=== PATIENT | male | born 1970 | race Caucasian/White ===

== ENCOUNTER → 2017-08-10 09:32 | Emergency (ER) | payer BC ==
[~2017-08-10 09:32] MED LIST: Morphine INJ* 4 MG/ML 1 ML CARPUJECT IV ONE; NS 0.9% 1000 ML* 1,000 ML IV ONE; Ondansetron INJ* 2 MG/ML VIAL IV ONE; Piperacillin/Tazobac ADVAN(*) 3.375 GM in NS 0.9% 100 ML* 100 ML IVPB ONE
[2017-08-10 11:09] LABS: Hematocrit 43 % (42-52); Hemoglobin 14.6 g/dl (14.0-18.0); Mean Corpuscular HGB Conc 34 g/dl (31-36); Mean Corpuscular Hemoglobin 33 pg (27-31); Mean Corpuscular Volume 96 fL (80-94); Mean Platelet Volume 7 um3 (7.4-10.4); Red Blood Count 4.49 10^6/ul (4.0-5.4); Red Cell Distribution Width 13 % (10.5-15); White Blood Count 9.3 10^3/ul (3.5-10.8)
[2017-08-10 11:15] LABS: Urine Bacteria Absent (Absent); Urine Bilirubin Negative (Negative); Urine Glucose Negative (Negative); Urine Nitrite Negative (Negative)
[2017-08-10 11:25] LABS: Albumin 4.3 g/dL (3.2-5.2); BUN/Creatinine Ratio 16.7 (8-20); C Reactive Protein 95.67 mg/L (< 5.00); Calcium 9.2 mg/dL (8.6-10.3); EGFR African American 125.4 (>60); EGFR Non-African American 97.5 (>60); Globulin 2.9 g/dL (2-4); Total Bilirubin 0.8 mg/dL (0.2-1.0); Total Protein 7.2 g/dL (6.4-8.9)
--- NOTE | 2017-08-10 12:38 | RAD ---
INDICATION: Lower abdominal pain since Tuesday. Denies nausea, vomiting, diarrhea. Denies constipation. Post appendectomy and hernia repairs. COMPARISON: June 23, 2015 CT. TECHNIQUE: Multidetector CT images were obtained from the lung bases to the ischial tuberosities. Oral contrast administered. Assessment of the visceral limited without IV contrast. REPORT: Mild linear basilar subsegmental atelectasis. Unremarkable unenhanced liver, gallbladder, pancreas, spleen. Severe colonic diverticulosis most marked at the sigmoid colon. Mild perienteric inflammatory change at the medial margin of the proximal sigmoid colon without visualized perienteric abscess collection. Small volume of free fluid along the RIGHT pelvic sidewall and at the dependent pelvis. Negative for free air. Post appendectomy. Unremarkable small bowel loops. Normal adrenal glands. Unremarkable kidneys. Negative for urolithiasis or hydronephrosis. Unremarkable nondilated ureters and urinary bladder. Symmetric seminal vesicles. Multiple pelvic phleboliths. Negative for lymphadenopathy. Normal diameter abdominal aorta and iliac arteries. Physiologic distention of the IVC. Negative for suspicious focal osseous lesions. IMPRESSION: The constellation of findings is most consistent with acute diverticulitis of the proximal sigmoid colon without perienteric abscess, free intraperitoneal air, or resulting bowel obstruction. The region of diverticulitis is further distal than on the June 23, 2015 exam. Follow-up after therapy suggested to assess for resolution and exclude an underlying noninflammatory lesion of the bowel.
--- NOTE | 2017-08-10 13:17 | ED ---
Rebeka Bauman Nilda, scribed for Juliana Downey MD on 08/10/17 at 1017 . Abdominal Pain/Male - HPI Summary HPI Summary: This patient is a 47 year old M presenting to [facility] accompanied by with a chief complaint of constant, progressively worsening LLQ pain for the past four days ago. The patient rates the pain 8/10 in severity. Initially pain began as 2 /10. Symptoms aggravated and alleviated by nothing including Motrin [employer]. Patient reports headache, constipation (yesterday), and intermittent shooting pain in testicle (not currently present). Patient denies fever, chills, N/V/D, pencil thin stools, urinary retention, and dysuria. Two weeks ago, pt was heavy lifting and injured his back. Pt also states he has Hx of bilat hernia and is concerned pain may be due to hernia. Per , pt has adverse reaction to IV contrast and Vicodin. PMHx Diverticulitis (2014) and Prostatitis. - History of Current Complaint Chief Complaint: EDAbdPain Stated Complaint: ABD PAIN Hx Obtained From: Patient, Family/Stereotyper Apprentice - Onset/Duration: Sudden Onset, Lasting Days, Still Present Timing: Constant Severity Initially: Mild Severity Currently: Severe Pain Intensity: 8 Pain Scale Used: 0-10 Numeric Location: Discrete At: LLQ Radiates: No Aggravating Factor(s): Nothing Alleviating Factor(s): Nothing Associated Signs And Symptoms: Positive: Other - headache, constipation ( yesterday), back pain and intermittent shooting pain in testicle (not currently present). Patient denies fever, chills, n/v/d, pencil thin stools, urinary retention, and dysuria - Allergies/Home Medications Allergies/Adverse Reactions: Allergies Allergy/AdvReac Type Severity Reaction Status Date / Time No Known Allergies Allergy Verified 06/23/15 16:11 PMH/Surg Hx/FS Hx/Imm Hx Endocrine/Hematology History: Denies: Hx Diabetes Cardiovascular History: Denies: Hx Congestive Heart Failure, Hx Hypercholesterolemia, Hx Hypertension GI History: Reports: Hx Diverticulosis, Other GI Disorders - bilat hernia History: Reports: Other Problems/Disorders - prostatitis - Surgical History Surgery Procedure, Year, and Place: APPENDECTOMY, HERNIA REPAIR X 2 - Immunization History Date of Tetanus Vaccine: Unk Date of Influenza Vaccine: None Infectious Disease History: No Infectious Disease History: Denies: Traveled Outside the [place] in Last 30 Days - Family History Known Family History: Negative: Hypertension - Social History Lives: With Family Alcohol Use: Rare Hx Substance Use: No Substance Use Type: Reports: None Smoking Status (MU): Never Smoked Tobacco Review of Systems Negative: Fever, Chills Positive: Abdominal Pain - LLQ, Other - constipation; negative pencil thin stools. Negative: Vomiting, Diarrhea, Nausea Positive: other - pain in testicle (not currently present); negative urinary retention . Negative: dysuria Positive: Headache All Other Systems Reviewed And Are Negative: Yes Physical Exam - Summary Physical Exam Summary: General: Well appearing, no pain distress Skin: Warm, Skin Color Reflects Adequate Perfusion, Dry Eyes: EOMI, TYRONE ENT: Pharynx normal, TMs normal Neck: Supple, nontender Respiratory: CTA, breath sounds present, no rhonchi, no wheezes, no rales Cardiovascular: RRR, no murmur, no rub, no gallop Abdomen: Soft, left suprapubic pain, Non-distended, no guarding, no rebound Bowel: Present Musculoskeletal: VERONICA, No edema Neuro: Sensory/motor intact, A&Ox3, CN intact 2-12 Psych: Affect/mood appropriate Triage Information Reviewed: Yes Vital Signs On Initial Exam: Initial Vitals Temp Pulse Resp BP Pulse Ox 97.6 F 73 18 135/67 98 08/10/17 09:38 08/10/17 09:38 08/10/17 09:38 08/10/17 09:38 08/10/17 09:38 Vital Signs Reviewed: Yes - Calvin Coma Scale Coma Scale Total: 15 Diagnostics - Vital Signs Vital Signs Temp Pulse Resp BP Pulse Ox 08/10/17 09:38 97.6 F 73 18 135/67 98 - Laboratory Lab Results: Lab Results 08/10/17 08/10/17 08/10/17 Range/Units 10:43 10:43 10:43 WBC 9.3 (3.5-10.8) 10^3/ul RBC 4.49 (4.0-5.4) 10^6/ul Hgb 14.6 (14.0-18.0) g/dl Hct 43 (42-52) % MCV 96 H (80-94) fL MCH 33 H (27-31) pg MCHC 34 (31-36) g/dl RDW 13 (10.5-15) % Plt Count 280 (150-450) 10^3/ul MPV 7 L (7.4-10.4) um3 Neut % (Auto) 76.3 (38-83) % Lymph % (Auto) 15.7 L (25-47) % [place] % (Auto) 6.6 (1-9) % Eos % (Auto) 0.9 (0-6) % Baso % (Auto) 0.5 (0-2) % Absolute Neuts (auto) 7.1 (1.5-7.7) 10^3/ul Absolute Lymphs (auto) 1.5 (1.0-4.8) 10^3/ul Absolute Monos (auto) 0.6 (0-0.8) 10^3/ul Absolute Eos (auto) 0.1 (0-0.6) 10^3/ul Absolute Basos (auto) 0 (0-0.2) 10^3/ul Absolute Nucleated RBC 0 10^3/ul Nucleated RBC % 0 Sodium 138 (133-145) mmol/L Potassium 4.0 (3.5-5.0) mmol/L Chloride 105 (101-111) mmol/L Carbon Dioxide 29 (22-32) mmol/L Anion Gap 4 (2-11) mmol/L BUN 14 (6-24) mg/dL Creatinine 0.84 (0.67-1.17) mg/dL Est GFR ( Amer) 125.4 (>60) Est GFR (Non-Af Amer) 97.5 (>60) BUN/Creatinine Ratio 16.7 (8-20) Glucose 116 H (70-100) mg/dL Calcium 9.2 (8.6-10.3) mg/dL Total Bilirubin 0.80 (0.2-1.0) mg/dL AST 16 (13-39) U/L ALT 18 (7-52) U/L Alkaline Phosphatase 71 (34-104) U/L C-Reactive Protein 95.67 H (< 5.00) mg/L Total Protein 7.2 (6.4-8.9) g/dL Albumin 4.3 (3.2-5.2) g/dL Globulin 2.9 (2-4) g/dL Albumin/Globulin Ratio 1.5 (1-3) Lipase 18 (11.0-82.0) U/L Urine Color Yellow Urine Appearance Clear Urine pH 5.0 (5-9) Ur Specific [place] 1.021 (1.010-1.030) Urine Protein Negative (Negative) Urine Ketones Negative (Negative) Urine Blood 1+ H (Negative) Urine Nitrate Negative (Negative) Urine Bilirubin Negative (Negative) Urine Urobilinogen Negative (Negative) Ur Leukocyte Esterase Negative (Negative) Urine WBC (Auto) Trace(0-5/hpf) (Absent) Urine RBC (Auto) Trace(0-2/hpf) (Absent) Urine Bacteria Absent (Absent) Urine Glucose Negative (Negative) Result Diagrams: 08/10/17 10:43 08/10/17 10:43 Lab Statement: Any lab studies that have been ordered have been reviewed, and results considered in the medical decision making process. - CT Abd/Pel CT Interpretation Completed By: Radiologist - The constellation of findings is most consistent with acute diverticulitis of the proximal sigmoid colon without perienteric abscess, free intraperitoneal air, or resulting bowel obstruction. The region of diverticulitis is further distal than on the June 23, 2015 exam. Follow-up after therapy suggested to assess for resolution and exclude an underlying noninflammatory lesion of the bowel.ED physician has reviewed this report and agrees. Abdominal Pain Fem Course/Dx - Course Course Of Treatment: CT Abd/Pel, per radiologist, reveals : The constellation of findings is most consistent with acute diverticulitis of the proximal sigmoid colon without perienteric abscess, free intraperitoneal air, or resulting bowel obstruction. The region of diverticulitis is further distal than on the June 23, 2015 exam. Follow-up after therapy suggested to assess for resolution and exclude an underlying noninflammatory lesion of the bowel. ED physician has reviewed this report and agrees. 47 yo male with diverticulitis clinically although his pain is llq/suprpubic this time and was ruq in the past, CT confirms the diagnosis pt is getting one dose of IV antibiotics here and will be following up with pmd and home antibiotics - Diagnoses Provider Diagnoses: Diverticulitis Discharge - Discharge Plan Condition: Stable Disposition: HOME Prescriptions: Ciprofloxacin TAB* [Cipro 500 MG TAB*] 500 mg PO BID #20 tab Metronidazole [Flagyl 500 MG TAB] 500 mg PO QID #40 tab Oxycodone W/ Acetaminophen [Percocet 2.5-325 mg (NF)] 1 tab PO Q6H PRN #12 tab MDD 4 PRN Reason: Pain Referrals: Jered Ordonez MD [Primary Care Provider] - 3 Days Additional Instructions: RETURN TO THE EMERGENCY DEPARTMENT FOR CHANGING OR WORSENING SYMPTOMS. The documentation as recorded by the Rebeka joy Nilda accurately reflects the service I personally performed and the decisions made by me, Juliana Downey MD.
[2017-08-10 14:03] VITALS: BP 116/87
== END | disposition home or self-care (01) ==
LOC: ED 09:32
DX: K57.92 Diverticulitis of intestine, part unspecified, without perforation or abscess without bleeding (principal); R10.32 Left lower quadrant pain; R51 Headache; K59.00 Constipation, unspecified; M54.9 Dorsalgia, unspecified
CPT/HCPCS: 36415; 74176; 80053; 81003; 81015; 83690; 85025; 86140; 96374; 96375; 99283; J2270; J2405; J2543

== ENCOUNTER 2017-09-03 16:11 | Emergency (ER) | payer BC ==
[2017-09-03 16:24] VITALS: BP 133/79
--- NOTE | 2017-09-03 16:53 | UC ---
Abdominal Pain Male HPI - HPI Summary HPI Summary: Patient presents with a past medical history of recent diverticulitis, he had a CT abdomen three week ago. He states his doctor told him that if his symptoms returned he needed to seek medical treatment immediately and get back on the antibiotic. He states this morning he developed a slight case of diarrhea, and then LLQ abdominal pain. He states the pain is non-radiating, and is worse with palpation. He denies fever, chills, nausea, vomiting, rectal bleeding, lightheadedness, or dizziness. He states these symptoms are exactly like what he had before except the pain is not as severe. - History of Current Complaint Chief Complaint: UCAbdominalPain Stated Complaint: STOMACH PAINS Time Seen by Provider: 09/03/17 16:37 Hx Obtained From: Patient Onset/Duration: Gradual Onset, Lasting Hours Timing: Constant Severity Initially: Mild Severity Currently: Mild Location: Discrete At: LLQ Character: Dull Aggravating Factor(s): Other - palpation Alleviating Factor(s): Rest Associated Signs And Symptoms: Positive: Negative - Risk Factors Testicular Torsion: Negative Cardiac Risk Factors: Negative - Allergies/Home Medications Allergies/Adverse Reactions: Allergies Allergy/AdvReac Type Severity Reaction Status Date / Time No Known Allergies Allergy Verified 09/03/17 16:24 PMH/Surg Hx/FS Hx/Imm Hx Previously Healthy: Yes - Surgical History Surgical History: Yes Surgery Procedure, Year, and Place: APPENDECTOMY, HERNIA REPAIR X 2 - Family History Known Family History: Negative: Hypertension - Social History Occupation: Employed Full-time Lives: Alone Alcohol Use: Rare Substance Use Type: None Smoking Status (MU): Never Smoked Tobacco - Immunization History Most Recent Influenza Vaccination: n/a Review of Systems Constitutional: Negative Skin: Negative Eyes: Negative ENT: Negative Respiratory: Negative Cardiovascular: Negative Gastrointestinal: Abdominal Pain Genitourinary: Negative Motor: Negative Neurovascular: Negative Musculoskeletal: Negative Neurological: Negative Psychological: Negative All Other Systems Reviewed And Are Negative: Yes Physical Exam Triage Information Reviewed: Yes Appearance: Well-Appearing Vital Signs: Initial Vital Signs Temp 98.8 F 09/03/17 16:21 Pulse 64 09/03/17 16:21 Resp 14 09/03/17 16:21 BP 133/79 09/03/17 16:21 Pulse Ox 98 09/03/17 16:21 Vital Signs Reviewed: Yes Eye Exam: Normal ENT Exam: Normal Neck exam: Normal Neck: Positive: 1 Respiratory Exam: Normal Cardiovascular Exam: Normal Abdomen Description: Positive: Other: - LLQ tenderness on palpation without rebound, guarding, or HSM, Skin Exam: Normal Abd Pain Male Course/Dx - Course Course Of Treatment: Patient presents with past medical history of diverticultis , and he reports LLQ abdominal pain onset today. He denies fever, chills, nausea , or vomiting. last BM this morning. He denies any rectal bleeding. He has CT abdomen three weeks ago and that confirmed his diagnoses, he was told that if he abdominal pain returned to seek medical attention at once, and his doctors office in now closed. He presents with normal VS, has a nontoxic appearance, and was treated with cipro and flagly. He understands that if his symptoms get worse he will need to go to the ER at once, and he understands the limitations as I do not have CT avaliable at this time and without the imaging I cannot difinitively DX his medical condition. He verbalize understanding of and in agreement with the discharge. - Differential Dx/Clinical Impression Differential Diagnosis/HQI/PQRI: Diverticulitis Provider Diagnoses: diverticultis Discharge - Discharge Plan Condition: Stable Disposition: HOME Prescriptions: Ciprofloxacin TAB* [Cipro 500 MG TAB*] 500 mg PO BID #20 tab Metronidazole [Flagyl 500 MG TAB] 500 mg PO TID #30 tab Patient Education Materials: Diverticulitis (ED) Referrals: Jered Ordonez MD [Primary Care Provider] - Additional Instructions: If symptoms worsen go to ER at once.
== END 2017-09-03 16:50 | disposition home or self-care (01) ==
LOC: UCEAST 16:11
DX: K57.92 Diverticulitis of intestine, part unspecified, without perforation or abscess without bleeding (principal); Z90.49 Acquired absence of other specified parts of digestive tract
CPT/HCPCS: 99212; G0463

== ENCOUNTER 2018-01-29 15:00 | Inpatient (IN) | payer BC ==
[2018-01-29] MEDS ORDERED: NS 0.9% 1000 ML* 1,000 ML IV ONE ×2 (17:22→19:54)
[2018-01-29 17:52] LABS: ABS Basophils 0.1 10^3/ul (0-0.2); ABS Eosinophils 0 10^3/ul (0-0.6); ABS Lymphocytes 1.7 10^3/ul (1.0-4.8); ABS Monocytes 0.9 10^3/ul (0-0.8); ABS Neutrophils 8.9 10^3/ul (1.5-7.7); ABS Nucleated RBC 0 10^3/ul; Eosinophil % 0.3 % (0-6); Hematocrit 40 % (42-52); Hemoglobin 13.8 g/dl (14.0-18.0); Lymphocyte % 14.7 % (25-47); Mean Corpuscular HGB Conc 34 g/dl (31-36); Mean Corpuscular Hemoglobin 33 pg (27-31); Mean Corpuscular Volume 96 fL (80-94); Mean Platelet Volume 6.6 um3 (7.4-10.4); Nucleated Red Blood Cells % 0; Platelet Count 246 10^3/ul (150-450); Red Blood Count 4.22 10^6/ul (4.0-5.4); Red Cell Distribution Width 13 % (10.5-15); White Blood Count 11.7 10^3/ul (3.5-10.8)
[2018-01-29 17:55] LABS: Urine Appearance Clear; Urine Blood 1+ (Negative); Urine Color Yellow; Urine Ketones Negative (Negative); Urine Protein Negative (Negative); Urine Specific Gravity 1.008 (1.010-1.030); Urine Urobilinogen Negative (Negative)
[2018-01-29 18:09] LABS: EGFR Non-African American 94.9 (>60)
[2018-01-29] MEDS ORDERED: Acetaminophen TAB* 325 MG PO ONE (19:53)
[2018-01-29] MEDS ORDERED: Acetaminophen TAB* 325 MG ONE (19:56)
--- NOTE | 2018-01-29 20:18 | RAD ---
CLINICAL HISTORY: Abdominal pain COMPARISON: January 08, 2010 TECHNIQUE: Multiple contiguous axial CT scans were obtained of the abdomen and pelvis, without intravenous contrast enhancement. Coronal and sagittal multiplanar reformations are submitted for review. Oral contrast was administered. FINDINGS: The study is limited by the lack of intravenous contrast. This limits evaluation of the solid organs and vasculature. LUNG BASES: There is linear atelectasis of the left lung base LIVER: The liver is normal in shape, size, contour, and attenuation. BILE DUCTS: There is no intrahepatic or extrahepatic biliary dilatation. GALLBLADDER: The gallbladder is normal, without pericholecystic inflammatory change. PANCREAS: The pancreas is normal, without mass or ductal dilatation. SPLEEN: Normal in size and appearance. UPPER GI TRACT: Evaluation of the gastrointestinal tract is limited by incomplete gastric distention. The upper GI tract is unremarkable. SMALL BOWEL AND MESENTERY: The small bowel is normal in contour, course, and caliber. There is no obstruction or dilatation. COLON: There is diverticulosis of the sigmoid and descending colon. There is extensive stranding of the mesenteric margin of the sigmoid colon. There is a small amount of contained extraluminal gas. There is no likely the fluid collection to suggest abscess. ADRENALS: Normal bilaterally. KIDNEYS: The kidneys are normal in shape, size, contour, and axis. There is no hydronephrosis or nephrolithiasis. BLADDER: The bladder is smooth in contour. PELVIC ORGANS: The prostate gland is normal. The seminal vesicles are symmetric. AORTA: The aorta is normal. IVC: Unremarkable LYMPH NODES: There is no lymphadenopathy by size criteria. ABDOMINAL WALL: There is no evidence for abdominal wall hernia. BONES AND SOFT TISSUES: There are mild diffuse degenerative changes. OTHER: None IMPRESSION: DIVERTICULITIS. THERE IS A SMALL AMOUNT OF CONTAINED LOCAL EXTRALUMINAL GAS SUGGESTIVE OF MICROPERFORATION, WITHOUT FREE INTRAPERITONEAL GAS. THERE IS NO LOCULATED FLUID COLLECTION TO SUGGEST ABSCESS. PRELIMINARY FINDINGS WERE DISCUSSED WITH DR. CALLEJAS IN THE EMERGENCY DEPARTMENT AT APPROXIMATELY 8:14 PM ON JANUARY 29, 2018.
[2018-01-29] MEDS ORDERED: Piperacillin/Tazobac ADVAN(*) 3.375 GM in NS 0.9% 100 ML* 100 ML IVPB ONE (21:13)
[2018-01-29] MEDS ORDERED: oxyCODONE/Acetamin 5/325 MG* TAB PO PRN (22:01)
[2018-01-29] MEDS ORDERED: Senna TAB PO PRN (22:01)
[2018-01-29] MEDS ORDERED: Docusate CAP* 100 MG PO PRN (22:01)
[2018-01-29] MEDS ORDERED: Al Hydrox/Mg Hydrox/Simet LIQ* 30 ML UDC PO PRN (22:01)
[2018-01-29] MEDS ORDERED: Ondansetron 40 MG VIAL* 2 MG/ML 20 ML VIAL IV PRN (22:01)
[2018-01-29] MEDS ORDERED: Morphine VIAL* 4 MG/ML VIAL (1 ml vial) IV PRN (22:01)
[2018-01-29] MEDS ORDERED: Zosyn per Pharmacy* NOTE FOLLOW UP SCH (23:00)
--- NOTE | 2018-01-30 01:53 | HP ---
CC: Jered Ordonez MD * HISTORY AND PHYSICAL: DATE OF ADMISSION: 01/29/18 TIME OF EVALUATION: 2200. PRIMARY CAR1E PHYSICIAN: Jered Ordonez MD CHIEF COMPLAINT: Abdominal pain. HISTORY OF PRESENT ILLNESS: This is a 47-year-old male with a past medical history of diverticulitis who began having mid abdominal pain beginning on 01/27. He states it did not improve, and he is having nausea and finally came to the emergency room for further evaluation. His last bowel movement was yesterday morning that was small, but not loose. No diarrhea. He has had some nausea. No vomiting. He had chills, but no fever at home. He has had some burning and discomfort while urinating. He has had some lower back pain bilaterally. No chest pain or shortness of breath. No URI symptoms. He has never had a colonoscopy in the past. He has had 3 bouts of diverticulitis in the past once in 2015, two in 2017. He does see Dr. Young earlier this year and was told he did not need surgery. In the emergency room, the patient had labs and imaging. He was found to have diverticulosis with small microperforation. He was given 2 L of fluid and Zosyn and was referred to the hospitalist service for further evaluation. PAST MEDICAL HISTORY: As mentioned: 1. Three bouts of diverticulitis, all required outpatient antibiotic management. 2. History of GERD. MEDICATIONS: 1. Nexium 40 mg p.o. q.a.m. 2. Aspirin 81 mg daily. 3. Multivitamins. ALLERGIES: No known drug allergies. FAMILY HISTORY: Father unknown, he is estranged from. Mother is alive and healthy. SOCIAL HISTORY: The patient lives at home with his , Isi, who is his healthcare proxy. No tobacco use. Little alcohol use. No illicit drug use. 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 CODE STATUS: Full code. REVIEW OF SYSTEMS: A 14-point review of systems as mentioned in the HPI, otherwise negative. PHYSICAL EXAMINATION GENERAL: No acute distress. Resting comfortably with his at the bedside. VITAL SIGNS: T-max was 103.4, pulse rate 78, respiratory rate 16, oxygen saturation 97% on room air, and blood pressure 117/56. HEENT: Head is normocephalic. Pupils are reactive, anicteric. Oropharynx: Mucous membranes are moist. NECK: Supple. No lymphadenopathy. RESPIRATORY: Clear to auscultation. No wheeze, rhonchi or rales. CARDIAC: Regular rate and rhythm. Soft systolic murmur heard throughout. ABDOMEN: Normal bowel sounds. Soft. Some mid abdominal tenderness. No rebound or guarding. No distention. EXTREMITIES: No clubbing, cyanosis or edema. +2 DPs. NEUROLOGIC: Alert and oriented x3. No gross focal neurologic deficits. DIAGNOSTIC STUDIES/LABORATORY DATA: White count 11.7, hemoglobin 13.8, hematocrit 40, platelets 246. Sodium 140, potassium 3.7, chloride 105, bicarb 28, BUN 12, creatinine 0.86, total bilirubin 1.2, mag of 2, AST 16, ALT was 18, CRP was 142, lipase was 20. Urine shows +1 blood, otherwise negative. RADIOGRAPHIC DATA: Diverticulitis. There is small amount of contained local extraluminal gas suggestive of microperforation without free intraperitoneal gas. There was no loculated stool collection to suggest abscess. EKG shows normal sinus rhythm. ASSESSMENT: This is a 47-year-old male with a past medical history of diverticulitis who presents to the emergency room with abdominal pain and fever , found to have diverticulitis with microperforation. 1. Diverticulitis with microperforation. Assessment: The patient is nontoxic appearing. Abdomen is benign at this point. Plan: Continue IV fluids, NPO. We will continue him on Zosyn. We will place the Surgery consult in the setting of his fourth episode and now with microperforation. I did contact Dr. Davenport regarding the consultation. We will repeat the CBC in the morning. CHRONIC MEDICAL PROBLEMS: 1. GERD. I will continue with omeprazole as we do not have Nexium on formulary. 2. FEN. We will keep the patient NPO with IV fluids going. 3. DVT prophylaxis: The patient scores moderate risk. Place him on heparin subcu t.i.d. 4. Code status: Full code. PATIENT TIME: Greater than 40 minutes were spent doing the history and physical , more than half the time was spent in direct patient contact. [id number]/[facility] #: [id number] DANIELA
[2018-01-30] MEDS: ZOSYN 3.375 GM Q8H per EXTENDED INFUSION IVPB SCH ×6 (03:00→18:39)
[2018-01-30] MEDS ORDERED: Piperacillin/Tazobac ADVAN(*) 3.375 GM in NS 0.9% 100 ML* 100 ML IVPB ONE (03:00)
[2018-01-30] MEDS: Acetaminophen TAB* 325 MG PO PRN (03:09)
[2018-01-30 05:52] LABS: ABS Basophils 0 10^3/ul (0-0.2); ABS Eosinophils 0 10^3/ul (0-0.6); ABS Lymphocytes 1.3 10^3/ul (1.0-4.8); ABS Monocytes 0.7 10^3/ul (0-0.8); ABS Neutrophils 7.4 10^3/ul (1.5-7.7); ABS Nucleated RBC 0 10^3/ul; Eosinophil % 0.5 % (0-6); Hematocrit 37 % (42-52); Hemoglobin 12.7 g/dl (14.0-18.0); Lymphocyte % 13.5 % (25-47); Mean Corpuscular HGB Conc 35 g/dl (31-36); Mean Corpuscular Hemoglobin 33 pg (27-31); Mean Corpuscular Volume 96 fL (80-94); Mean Platelet Volume 6.4 um3 (7.4-10.4); Nucleated Red Blood Cells % 0; Platelet Count 229 10^3/ul (150-450); Red Blood Count 3.83 10^6/ul (4.0-5.4); Red Cell Distribution Width 13 % (10.5-15); White Blood Count 9.4 10^3/ul (3.5-10.8)
[2018-01-30] MEDS: Heparin VIAL(*) 5000 UNITS/ML VIAL (FIVE THOUSAND) SUBCUT SCH ×3 (06:15→22:54)
[2018-01-30] MEDS: Omeprazole CAP* 20 MG PO SCH (06:15)
[2018-01-30] MEDS: NS 0.9% 1000 ML* 1,000 ML IV SCH ×3 (07:53→22:30)
--- NOTE | 2018-01-30 08:16 | ED ---
Alonzo Bauman Gabriel, scribed for Ryan Mccloud MD on 01/29/18 at 1724 . Abdominal Pain/Male - HPI Summary HPI Summary: This patient is a 47 year old M presenting to [facility] accompanied by his with a chief complaint of ABD pain that began 2 days ago. The patient rates the pain 6/10 in severity. Patient reports flank pain, milky urine, nausea, cold sweats, headache, and chills. Patient denies diarrhea. Hx diverticulitis but states it does not feel like a typical flair. - History of Current Complaint Chief Complaint: EDAbdPain Stated Complaint: ABD PAIN Time Seen by Provider: 01/29/18 17:17 Hx Obtained From: Patient Onset/Duration: Lasting Days - 2, Still Present Timing: Constant Severity Initially: Moderate Severity Currently: Moderate Pain Intensity: 6 Pain Scale Used: 0-10 Numeric Location: Suprapubic Radiates: Yes Radiates to: Flank Associated Signs And Symptoms: Positive: Other - flank pain, milky urine, nausea , cold sweats, headache, and chills. Negative: Diarrhea - Allergies/Home Medications Allergies/Adverse Reactions: Allergies Allergy/AdvReac Type Severity Reaction Status Date / Time No Known Allergies Allergy Verified 01/29/18 15:05 Home Medications: Home Medications Esomeprazole(NF) [NexIUM(NF)] 40 mg PO DAILY 01/29/18 [History Confirmed ] PMH/Surg Hx/FS Hx/Imm Hx Endocrine/Hematology History: Denies: Hx Diabetes Cardiovascular History: Denies: Hx Auto Implanted Cardiovert Defib, Hx Cardiac Arrest, Hx Congestive Heart Failure, Hx Hypercholesterolemia, Hx Hypertension, Hx Supraventricular Ventricular Tachycardia Respiratory History: Denies: Hx Chronic Obstructive Pulmonary Disease (COPD) GI History: Reports: Hx Diverticulosis, Other GI Disorders - bilat hernia History: Reports: Other Problems/Disorders - prostatitis Psychiatric History: Denies: Hx Suicide Attempt - Surgical History Surgery Procedure, Year, and Place: APPENDECTOMY, HERNIA REPAIR X 2 - Immunization History Date of Tetanus Vaccine: Unk Date of Influenza Vaccine: None Infectious Disease History: No Infectious Disease History: Denies: Traveled Outside the [place] in Last 30 Days - Family History Known Family History: Negative: Hypertension, Renal Disease, Respiratory Disease - Social History Lives: With Family Alcohol Use: Rare Hx Substance Use: No Substance Use Type: Reports: None Smoking Status (MU): Never Smoked Tobacco Review of Systems Positive: Chills, Skin Diaphoresis Positive: Abdominal Pain, Nausea. Negative: Diarrhea Genitourinary: Other - milkly urine Positive: flank pain Positive: Headache All Other Systems Reviewed And Are Negative: Yes Physical Exam - Summary Physical Exam Summary: VITAL SIGNS: Reviewed. GENERAL: Patient is a well-developed and nourished male who is lying comfortable in the stretcher. Patient is not in any acute respiratory distress. HEAD AND FACE: No signs of trauma. No ecchymosis, hematomas or skull depressions. No sinus tenderness. EYES: PERRLA, EOMI x 2, No injected conjunctiva, no nystagmus. EARS: Hearing grossly intact. Ear canals and tympanic membranes are within normal limits. MOUTH: Oropharynx within normal limits. NECK: Supple, trachea is midline, no adenopathy, no JVD, no carotid bruit, no c- spine tenderness, neck with full ROM. CHEST: Symmetric, no tenderness at palpation LUNGS: Clear to auscultation bilaterally. No wheezing or crackles. CVS: Regular rate and rhythm, S1 and S2 present, no murmurs or gallops appreciated. ABDOMEN: Soft, suprapubic tenderness. No signs of distention. No rebound no guarding, and no masses palpated. Bowel sounds are normal. EXTREMITIES: FROM in all major joints, no edema, no cyanosis or clubbing. NEURO: Alert and oriented x 3. No acute neurological deficits. Speech is normal and follows commands. SKIN: Dry and warm Triage Information Reviewed: Yes Vital Signs On Initial Exam: Initial Vitals Temp Pulse Resp BP Pulse Ox 98.2 F 81 14 139/72 97 01/29/18 15:05 01/29/18 15:05 01/29/18 15:05 01/29/18 15:05 01/29/18 15:05 Vital Signs Reviewed: Yes Diagnostics - Vital Signs Vital Signs Temp Pulse Resp BP Pulse Ox 01/29/18 15:05 98.2 F 81 14 139/72 97 - Laboratory Lab Results: Lab Results 01/29/18 01/29/18 01/29/18 Range/Units 17:40 17:42 17:42 WBC 11.7 H (3.5-10.8) 10^3/ul RBC 4.22 (4.0-5.4) 10^6/ul Hgb 13.8 L (14.0-18.0) g/dl Hct 40 L (42-52) % MCV 96 H (80-94) fL MCH 33 H (27-31) pg MCHC 34 (31-36) g/dl RDW 13 (10.5-15) % Plt Count 246 (150-450) 10^3/ul MPV 6.6 L (7.4-10.4) um3 Neut % (Auto) 76.5 (38-83) % Lymph % (Auto) 14.7 L (25-47) % Stewart % (Auto) 7.9 H (0-7) % Eos % (Auto) 0.3 (0-6) % Baso % (Auto) 0.6 (0-2) % Absolute Neuts (auto) 8.9 H (1.5-7.7) 10^3/ul Absolute Lymphs (auto) 1.7 (1.0-4.8) 10^3/ul Absolute Monos (auto) 0.9 H (0-0.8) 10^3/ul Absolute Eos (auto) 0 (0-0.6) 10^3/ul Absolute Basos (auto) 0.1 (0-0.2) 10^3/ul Absolute Nucleated RBC 0 10^3/ul Nucleated RBC % 0 Sodium 140 (139-145) mmol/L Potassium 3.7 (3.5-5.0) mmol/L Chloride 105 (101-111) mmol/L Carbon Dioxide 28 (22-32) mmol/L Anion Gap 7 (2-11) mmol/L BUN 12 (6-24) mg/dL Creatinine 0.86 (0.67-1.17) mg/dL Est GFR ( Amer) 122.1 (>60) Est GFR (Non-Af Amer) 94.9 (>60) BUN/Creatinine Ratio 14.0 (8-20) Glucose 93 (70-100) mg/dL Calcium 9.0 (8.6-10.3) mg/dL Magnesium 2.0 (1.9-2.7) mg/dL Total Bilirubin 1.20 H (0.2-1.0) mg/dL AST 16 (13-39) U/L ALT 18 (7-52) U/L Alkaline Phosphatase 54 (34-104) U/L C-Reactive Protein 142.72 H (< 5.00) mg/L Total Protein 7.1 (6.4-8.9) g/dL Albumin 4.2 (3.2-5.2) g/dL Globulin 2.9 (2-4) g/dL Albumin/Globulin Ratio 1.4 (1-3) Amylase 41 (29-103) U/L Lipase 20 (11.0-82.0) U/L Urine Color Yellow Urine Appearance Clear Urine pH 6.0 (5-9) Ur Specific [place] 1.008 L (1.010-1.030) Urine Protein Negative (Negative) Urine Ketones Negative (Negative) Urine Blood 1+ A (Negative) Urine Nitrate Negative (Negative) Urine Bilirubin Negative (Negative) Urine Urobilinogen Negative (Negative) Ur Leukocyte Esterase Negative (Negative) Urine WBC (Auto) Trace(0-5/hpf) (Absent) Urine RBC (Auto) Trace(0-2/hpf) (Absent) Urine Bacteria Absent (Absent) Urine Glucose Negative (Negative) Result Diagrams: 01/29/18 17:42 01/29/18 17:42 Lab Statement: Any lab studies that have been ordered have been reviewed, and results considered in the medical decision making process. - EKG 1732 Cardiac Rate: NL EKG Rhythm: Sinus Rhythm - at 70 BPM EKG Interpretation: no ST elevations, Q wave in 3, AVF, V1, and V2 Abdominal Pain Fem Course/Dx - Course Assessment/Plan: This patient is a 47-year-old male who presents to the emergency department with a chief complaint of lower abdominal pain. Patient reports that he has history of diverticulitis however the symptoms are slightly different to his usual diverticulitis. The results without any significant abnormality except for what was a count of 11.7, and CRP over 142. Urinalysis is negative for a UTI. The patient is awaiting for an abdominopelvic CT with only by mouth contrast since the patient reports that he has allergies to IV contrast. The patient is comfortable and he did not require any pain medications at this point. I will be transferring the patients care to Dr. Cheung the next ER attending at shift change. At this point the patient is hemodynamically stable, alert and oriented 3. - Diagnoses Differential Diagnosis/HQI/PQRI: Bowel Obstruction, Constipation, Diverticulitis , Renal Colic, Ureteral Stone Provider Diagnoses: Lower abdominal pain Discharge - Sign-Out/Discharge Documenting (check all that apply): Sign-Out Patient Signing out patient TO: Kentrell Mead - Discharge Plan Referrals: Jered Ordonez MD [Primary Care Provider] - The documentation as recorded by the Alonzo joy Gabriel accurately reflects the service I personally performed and the decisions made by me, Ryan Mccloud MD.
--- NOTE | 2018-01-30 10:26 | CONS ---
CC: Dr. Jered Ordonez; [facility] * SURGICAL CONSULTATION: DATE OF CONSULTATION: 01/30/18 HISTORY OF PRESENT ILLNESS: I was contacted overnight regarding the patient Opal Oquendo, a 47-year-old gentleman with history of diverticulitis, who was admitted to the hospitalist service for episode of acute diverticulitis. The patient presented with left lower quadrant pain, fatigue, diaphoresis, and was seen in the emergency room. Workup included a CT scan as well as labs. The patient was noted to have a temperature of 103 in the ER, with a white count of 12, and an elevated CRP of 143. He was admitted to the hospitalist service and started on Zosyn. The patient describes onset of symptoms about 2 days prior. It seemed similar to previous episodes of diverticulitis, which he describes as 3 episodes in the past. Looking through the records, it seems the patient had an episode in [address] scan evidence, again in July [address] scan evidence. He was treated as outpatient on both these occasions with oral antibiotics. The episode in July seem to be refractory in that patient did present in August, a month after the diagnosis, and was given a second course of antibiotics. The patient has described pain usually in the left lower quadrant , but on episodes it had been in the right lower quadrant. The patient is already status post appendectomy as a child. Symptoms do include fevers, sweats , and on this occasion he had dysuria. Currently, the patient is sitting in bed, he is complaining of only mild abdominal pain. He does have appetite. PAST MEDICAL HISTORY: GERD. PAST SURGICAL HISTORY: Open appendectomy in his teenage years and bilateral open inguinal hernia repairs with mesh. MEDICATIONS: List was reviewed. ALLERGIES: No known drug allergies. SOCIAL HISTORY: Nonsmoker. He is an electrician office. REVIEW OF SYSTEMS: Fevers, as described. No headaches. No shortness of breath or chest pain. No cardiovascular disease. No cerebrovascular disease. Good exercise tolerance. Reflux symptoms treated with proton-pump inhibitor. Abdominal pain as described, dysuria as described. No pneumaturia. No change in bowel habits. Patient has never had a colonoscopy. No bleeding or clotting disorders. No complications with anesthesia. PHYSICAL EXAMINATION: The patient is afebrile. Vital signs are stable. Alert and oriented x3, in no apparent distress. Head, ears, eyes, nose and throat: Normocephalic, atraumatic. Sclerae are anicteric. Mucous membranes are moist. Neck: No lymphadenopathy. Abdomen is soft, nondistended, minimal tenderness in the left lower quadrant and the suprapubic area, without rebound. No masses or hernias noted. Well-healed surgical incisions appreciated. No CVA tenderness. Rectal exam not performed. Extremities within normal limits. DIAGNOSTIC STUDIES/LAB DATA: Labs show white count down to 9.4. Urinalysis within normal limits. Chemistry panel reviewed and CRP as described above. CT scan reviewed and shows a phlegmon with some air at the area of the sigmoid colon. This is more profound than previous CT scans. However, it does not show abscess. There is no air under the diaphragm. Small bowel appears intact without evidence of obstruction, with contrast extending to the cecum. IMPRESSION: Complicated diverticulitis with phlegmon. This does represent a third episode in less than 3 years of diverticulitis, with 1 episode being refractory. This does represent the most complicated of radiographic images regarding this and also does represent a new symptom of dysuria. PLAN: I agree with antibiotics at this juncture, possibly for another 24 hours if patient continues to improve, as he has, I would recommend discharge home with oral antibiotics for 10 days. I would like to see the patient in my office and have described to him the likely recommendation of a laparoscopic- assisted sigmoid colectomy to prevent further episodes. We described that patient is otherwise doing well, but the likelihood of recurrence seems large and I believe patient will benefit from a sigmoid colectomy. Patient's questions were answered. We will continue to follow him while he is hospitalized and see him as outpatient. [id number]/[facility] #: [id number] [facility]LLIS HOSPITALJannette
--- NOTE | 2018-01-30 17:39 | PN ---
Subjective Date of Service: 01/30/18 Interval History: Patient was seen and examined earlier today. Reports feeling better, pain has improved overnight. Denies nausea, vomiting, fever or chills. Feels hungry, had a small loose BM this morning. Seen by surgery for consultation earlier today. He has no new complaints. Family History: Unchanged from Admission Social History: Unchanged from Admission Past Medical History: Unchanged from Admission Objective Active Medications: Acetaminophen (Tylenol Tab*) 650 mg PO Q4H PRN PRN Reason: FEVER/PAIN Last Admin: 01/30/18 03:09 Dose: 650 mg Al Hydrox/Mg Hydrox/Simethicone (Maalox Plus*) 30 ml PO Q6H PRN PRN Reason: INDIGESTION Docusate Sodium (Colace Cap*) 100 mg PO BID PRN PRN Reason: CONSTIPATION Heparin Sodium (Porcine) (Heparin Vial(*)) 5,000 units SUBCUT Q8HR [facility] Last Admin: 01/30/18 14:32 Dose: 5,000 units Piperacillin Sod/Tazobactam (Sod 3.375 gm/ Sodium Chloride) 100 mls @ 25 mls/ hr IVPB Q8H [facility] Last Admin: 01/30/18 10:58 Dose: 25 mls/hr Sodium Chloride (Ns 0.9% 1000 Ml*) 1,000 mls @ 150 mls/hr IV PER RATE [facility] Last Admin: 01/30/18 14:42 Dose: 150 mls/hr Morphine Sulfate (Morphine Vial*) 2 mg IV Q4H PRN PRN Reason: PAIN Omeprazole (Prilosec Cap*) 20 mg PO 0600 [facility] Last Admin: 01/30/18 06:15 Dose: 20 mg Ondansetron HCl (Zofran 40 Mg Vial*) 4 mg IV Q4H PRN PRN Reason: NAUSEA/VOMITING Oxycodone/Acetaminophen (Percocet 5/325 Tab*) 1 tab PO Q4H PRN PRN Reason: Pain Pharmacy Consult (Zosyn Per Pharmacy*) 1 note FOLLOW UP .ZOSYN PER PHARMACY [facility] Senna (Senokot Tab*) 1 tab PO BID PRN PRN Reason: CONSTIPATION Vital Signs - 8 hr 01/30/18 01/30/18 11:09 15:23 Temperature 99.0 F 98.7 F Pulse Rate 64 69 Respiratory 16 16 Rate Blood Pressure 150/77 120/67 (mmHg) O2 Sat by Pulse 99 98 Oximetry Oxygen Devices in Use Now: None Appearance: Healthy middle aged male, appears comfortable and in NAD Eyes: No Scleral Icterus, PERRLA Ears/Nose/Mouth/Throat: Clear Oropharnyx, Mucous Membranes Moist Neck: NL Appearance and Movements; NL JVP, Trachea Midline Respiratory: Symmetrical Chest Expansion and Respiratory Effort, Clear to Auscultation Cardiovascular: NL Sounds; No Murmurs; No JVD, RRR Abdominal: - - Abdomen soft and non-distended. Mild to moderate suprapubic and LLQ tenderness. Minimal guarding, but no rigidity or rebound noted. No hernias or masses. Extremities: No Edema, No Clubbing, Cyanosis Skin: No Rash or Ulcers Neurological: Alert and Oriented x 3, NL Sensation, NL Muscle Strength and Tone Lines/Tubes/Other Access: Clean, Dry and Intact Peripheral IV Result Diagrams: 01/30/18 05:33 01/29/18 17:42 Additional Lab and Data: Lab Results 01/29/18 01/29/18 01/29/18 Range/Units 17:40 17:42 17:42 WBC 11.7 H (3.5-10.8) 10^3/ul RBC 4.22 (4.0-5.4) 10^6/ul Hgb 13.8 L (14.0-18.0) g/dl Hct 40 L (42-52) % MCV 96 H (80-94) fL MCH 33 H (27-31) pg MCHC 34 (31-36) g/dl RDW 13 (10.5-15) % Plt Count 246 (150-450) 10^3/ul MPV 6.6 L (7.4-10.4) um3 Neut % (Auto) 76.5 (38-83) % Lymph % (Auto) 14.7 L (25-47) % Divide % (Auto) 7.9 H (0-7) % Eos % (Auto) 0.3 (0-6) % Baso % (Auto) 0.6 (0-2) % Absolute Neuts (auto) 8.9 H (1.5-7.7) 10^3/ul Absolute Lymphs (auto) 1.7 (1.0-4.8) 10^3/ul Absolute Monos (auto) 0.9 H (0-0.8) 10^3/ul Absolute Eos (auto) 0 (0-0.6) 10^3/ul Absolute Basos (auto) 0.1 (0-0.2) 10^3/ul Absolute Nucleated RBC 0 10^3/ul Nucleated RBC % 0 Sodium 140 (139-145) mmol/L Potassium 3.7 (3.5-5.0) mmol/L Chloride 105 (101-111) mmol/L Carbon Dioxide 28 (22-32) mmol/L Anion Gap 7 (2-11) mmol/L BUN 12 (6-24) mg/dL Creatinine 0.86 (0.67-1.17) mg/dL Est GFR ( Amer) 122.1 (>60) Est GFR (Non-Af Amer) 94.9 (>60) BUN/Creatinine Ratio 14.0 (8-20) Glucose 93 (70-100) mg/dL Calcium 9.0 (8.6-10.3) mg/dL Magnesium 2.0 (1.9-2.7) mg/dL Total Bilirubin 1.20 H (0.2-1.0) mg/dL AST 16 (13-39) U/L ALT 18 (7-52) U/L Alkaline Phosphatase 54 (34-104) U/L C-Reactive Protein 142.72 H (< 5.00) mg/L Total Protein 7.1 (6.4-8.9) g/dL Albumin 4.2 (3.2-5.2) g/dL Globulin 2.9 (2-4) g/dL Albumin/Globulin Ratio 1.4 (1-3) Amylase 41 (29-103) U/L Lipase 20 (11.0-82.0) U/L Urine Color Yellow Urine Appearance Clear Urine pH 6.0 (5-9) Ur Specific [place] 1.008 L (1.010-1.030) Urine Protein Negative (Negative) Urine Ketones Negative (Negative) Urine Blood 1+ A (Negative) Urine Nitrate Negative (Negative) Urine Bilirubin Negative (Negative) Urine Urobilinogen Negative (Negative) Ur Leukocyte Esterase Negative (Negative) Urine WBC (Auto) Trace(0-5/hpf) (Absent) Urine RBC (Auto) Trace(0-2/hpf) (Absent) Urine Bacteria Absent (Absent) Urine Glucose Negative (Negative) Microbiology and Other Data: RUN DATE: 01/30/18 [facility] LAB LIVE PAGE 1 RUN TIME: [address], [place], [place] [address] Specimen Inquiry Name: SUSY SWANN : [address]: Malachi Julien MD Acct: [id number] Unit: [id number] AGE: 47 Location: [place] [address] Re01/29/18 SEX: M Status: ADM IN SPEC: [id number] MARCELLO: 01/29/[address]: Ryan Mccloud MD REQ: [id number] RECD: 01/29/18 _ STATUS: COMP OTHR DR: Jered Ordonez MD SOURCE: URINE SPDESC: ORDERED: Urine Culture Procedure Result Reported Site Urine Culture Final 01/30/181623 ML No Growth (<1,000 CFU/mL) * ML - Main Lab Diagnostic Imaging: Patient Name: SUSY SWANN Medical Record#: [id number] Ordering Physician: Ryan Mccloud MD Acct.#: [id number] : 1970 Age: 47 Sex: M Location: EMERGENCY DEPARTMENT Exam Date: 01/29/181723 ADM Status: REG ER Order Information: CT ABD/PEL W/O Accession Number: [id number] CPT: 14506 CLINICAL HISTORY: Abdominal pain COMPARISON: January 08, 2010 IMPRESSION: DIVERTICULITIS. THERE IS A SMALL AMOUNT OF CONTAINED LOCAL EXTRALUMINAL GAS SUGGESTIVE OF MICROPERFORATION, WITHOUT FREE INTRAPERITONEAL GAS. THERE IS NO LOCULATED FLUID COLLECTION TO SUGGEST ABSCESS. PRELIMINARY FINDINGS WERE DISCUSSED WITH DR. CALLEJAS IN THE EMERGENCY DEPARTMENT AT APPROXIMATELY 8:14 PM ON JANUARY 29, 2018. EKG Data: EKG INTERPRETATION ECG Report Patient Name SUSY SWANN Birthdate 1970 Sex M Order Number [id number] Date of ECG 01/29/2018 17:32:14 Interpretation Sinus rhythm.normal P axis, V-rate 60- 99 Left axis deviation.QRS axis - ABNORMAL ECG - ECG NEEDS E-SIGNING Assess/Plan/Problems-Billing Assessment: A 47 y/o male with PMHx of recurrent diverticulitis, who presented to ED with worsening abdominal pain and fever, and found on abdominal CT to have sigmoid colon diverticulitis with micro-perforations. - Patient Problems (1) Diverticulitis Current Visit: Yes Status: Acute Priority: High Comment: - Appears to be improving clinically - Continue IV Zosyn - Surgical consult appreciated, no need for any intervention at this time - May have sips of clear liquids - Hopefully he continues to improve, then to consider d/c to home with PO Abx (2) GERD (gastroesophageal reflux disease) Current Visit: Yes Status: Chronic Comment: - Continue PPI coverage (3) DVT prophylaxis Current Visit: Yes Status: Acute Comment: - SubQ Heparin (4) Full code status Current Visit: Yes Status: Acute Status and Disposition: Inpatient for IV antibiotics, anticipate discharge to home when medically stable.
[2018-01-31] MEDS: ZOSYN 3.375 GM Q8H per EXTENDED INFUSION IVPB SCH ×6 (02:16→18:26)
[2018-01-31] MEDS: Omeprazole CAP* 20 MG PO SCH (05:33)
[2018-01-31] MEDS: Heparin VIAL(*) 5000 UNITS/ML VIAL (FIVE THOUSAND) SUBCUT SCH ×3 (05:33→21:55)
[2018-01-31] MEDS: NS 0.9% 1000 ML* 1,000 ML IV SCH ×3 (05:35→22:53)
--- NOTE | 2018-01-31 09:11 | PN ---
Progress Note - Progress Note Date of Service: 01/31/18 Note: S: Surgery progress: patient feeling better; min pain. Feeling hungry. Passing flatus. Had liquid BM this a.m. No dysuria at present. Patient seen with and examined by PA student. O: Vital Signs - 8 hr 01/31/18 01/31/18 03:17 07:32 Temperature 98.3 F 98.5 F Pulse Rate 63 52 Respiratory 16 17 Rate Blood Pressure 111/56 121/72 (mmHg) O2 Sat by Pulse 98 98 Oximetry Intake and Output Last 24 Hours 01/29/18 01/30/18 01/31/18 02/01/18 06:59 06:59 06:59 06:59 Intake Total 0 4632 Output Total 850 1565 200 Balance -850 3067 -200 Weight 192 lb Intake: IV Fluids 3963 NS (0.9%) 3963 IVPB 319 ABX - ZOSYN 319 Oral 0 350 Output: Urine 850 1565 200 Other: # Voids 1 Gen: comfortable Heart: reg Lungs: clear Abd: nondistended; +BS; soft; mild tenderness LLQ w/o mass/guarding/rebound. Remainder of abdomen soft, nontender. Labs: Laboratory Tests 01/30/18 05:33 WBC 9.4 A: diverticulitis w/ phlegmon, improving P: would allow liquid diet; abx per hosp w/ transition to po and surgical f/u w / Dr. Davenport in 7-10d.
--- NOTE | 2018-01-31 11:30 | PN ---
Progress Note - Progress Note Date of Service: 01/31/18 SOAP: Surgical Progress Note Subjective: []Patient seen and examined at bedside @1000 01/31/18. Patient reports he is "feeling better" and is hungry. He has been ambulating independently. Reports minimal LLQ abdominal pain. Reports passing flatus and having 1 liquid BM this am. Denies fever/chills. Denies N/V. Denies dysuria or urinary frequency. Voiding regularly. Objective: [] Vital Signs 01/31/18 01/31/18 07:32 08:30 Temperature 98.5 F Pulse Rate 52 Respiratory 17 16 Rate Blood Pressure 121/72 (mmHg) O2 Sat by Pulse 98 Oximetry General: Well appearing 47y/o male sitting comfortably in a chair. Heart: RRR. Regular S1. Regular S2. No murmurs, rubs, or gallop. No peripheral edema. Lungs: Clear to auscultation in all lee. No wheezes or rales. Abdomen: Soft and nondistended. Mild tenderness to palpation at LLQ and suprapubic area w/o rigidity. No masses, guarding, or rebound. Remaining abdomen is soft, nontender with +BS throughout. Assessment: []Diverticulitis with phlegmon. Patient improving on Abx Plan: []Okay to start liquid diet as tolerated. Continue Abx per hospital Transition to PO Abx for discharge Will f/u with Dr. Davenport in office in 7-10d to discuss colectomy d/t recurrency of diverticulitis episodes. Discussed findings and plan with patient at bedside. Will discuss above with Dr. Davenport. <Chelle Escobar - Last Filed: 01/31/18 11:43> - Progress Note SOAP: I saw and evaluated the patient. Agree with above note. <Vince Davenport - Last Filed: 02/01/18 08:15>
--- NOTE | 2018-01-31 11:58 | PN ---
Subjective Date of Service: 01/31/18 Interval History: Mr. Oquendo reports feeling better today. His lower abdominal pain has significantly improved. Denies nausea, vomiting, fever or chills. Tolerating sips of clears, feels hungry, had another loose BM this morning. Ambulatory. Has no c/o today. Family History: Unchanged from Admission Social History: Unchanged from Admission Past Medical History: Unchanged from Admission Objective Active Medications: Acetaminophen (Tylenol Tab*) 650 mg PO Q4H PRN PRN Reason: FEVER/PAIN Last Admin: 01/30/18 03:09 Dose: 650 mg Al Hydrox/Mg Hydrox/Simethicone (Maalox Plus*) 30 ml PO Q6H PRN PRN Reason: INDIGESTION Docusate Sodium (Colace Cap*) 100 mg PO BID PRN PRN Reason: CONSTIPATION Heparin Sodium (Porcine) (Heparin Vial(*)) 5,000 units SUBCUT Q8HR [facility] Last Admin: 01/31/18 05:33 Dose: 5,000 units Piperacillin Sod/Tazobactam (Sod 3.375 gm/ Sodium Chloride) 100 mls @ 25 mls/ hr IVPB Q8H [facility] Last Admin: 01/31/18 10:51 Dose: 25 mls/hr Sodium Chloride (Ns 0.9% 1000 Ml*) 1,000 mls @ 150 mls/hr IV PER RATE [facility] Last Admin: 01/31/18 05:35 Dose: 150 mls/hr Morphine Sulfate (Morphine Vial*) 2 mg IV Q4H PRN PRN Reason: PAIN Omeprazole (Prilosec Cap*) 20 mg PO 0600 [facility] Last Admin: 01/31/18 05:33 Dose: 20 mg Ondansetron HCl (Zofran 40 Mg Vial*) 4 mg IV Q4H PRN PRN Reason: NAUSEA/VOMITING Oxycodone/Acetaminophen (Percocet 5/325 Tab*) 1 tab PO Q4H PRN PRN Reason: Pain Pharmacy Consult (Zosyn Per Pharmacy*) 1 note FOLLOW UP .ZOSYN PER PHARMACY [facility] Senna (Senokot Tab*) 1 tab PO BID PRN PRN Reason: CONSTIPATION Vital Signs - 8 hr 01/31/18 01/31/18 01/31/18 07:32 08:30 11:15 Temperature 98.5 F 98.5 F Pulse Rate 52 54 Respiratory 17 16 16 Rate Blood Pressure 121/72 121/69 (mmHg) O2 Sat by Pulse 98 98 Oximetry Oxygen Devices in Use Now: None Appearance: Appears comfortable and in NAD Eyes: No Scleral Icterus, PERRLA Ears/Nose/Mouth/Throat: Clear Oropharnyx, Mucous Membranes Moist Neck: NL Appearance and Movements; NL JVP, Trachea Midline Respiratory: Symmetrical Chest Expansion and Respiratory Effort, Clear to Auscultation Cardiovascular: NL Sounds; No Murmurs; No JVD, RRR Abdominal: - - Abdomen soft and non distended. Mild suprapubic tenderness with deep palpation. No guarding or rigidity. No rebound. Extremities: No Edema Skin: No Rash or Ulcers Neurological: Alert and Oriented x 3, NL Sensation, NL Muscle Strength and Tone Lines/Tubes/Other Access: Clean, Dry and Intact Peripheral IV Nutrition: Taking PO's Result Diagrams: 01/30/18 05:33 01/29/18 17:42 Additional Lab and Data: Microbiology and Other Data: . Diagnostic Imaging: . EKG Data: . Assess/Plan/Problems-Billing Assessment: A 47 y/o male with PMHx of recurrent diverticulitis, who presented to ED with worsening abdominal pain and fever, and found on abdominal CT to have sigmoid colon diverticulitis with micro-perforations. - Patient Problems (1) Diverticulitis Current Visit: Yes Status: Acute Priority: High Comment: - Appears to be improving clinically - Continue IV Zosyn - Surgical consult appreciated, no need for any intervention at this time - Clear liquids, will advance diet slowly - Hopefully he continues to improve, then to consider d/c to home tomorrow with PO Abx (2) GERD (gastroesophageal reflux disease) Current Visit: Yes Status: Chronic Comment: - Continue PPI coverage (3) DVT prophylaxis Current Visit: Yes Status: Acute Comment: - SubQ Heparin (4) Full code status Current Visit: Yes Status: Acute Status and Disposition: Inpatient for IV antibiotics, anticipate discharge to home when medically stable.
[2018-02-01] MEDS: ZOSYN 3.375 GM Q8H per EXTENDED INFUSION IVPB SCH ×4 (02:33→10:10)
[2018-02-01] MEDS: Omeprazole CAP* 20 MG PO SCH (05:56)
[2018-02-01] MEDS: Heparin VIAL(*) 5000 UNITS/ML VIAL (FIVE THOUSAND) SUBCUT SCH (05:57)
[2018-02-01] MEDS: NS 0.9% 1000 ML* 1,000 ML IV SCH (06:24)
[2018-02-01] MEDS: Acetaminophen TAB* 325 MG PO PRN (07:19)
[2018-02-01 12:00] VITALS: BP 121/74
--- NOTE | 2018-02-02 00:52 | ED ---
Jean Claude Bauman Julia, scribed for Kentrell Mead MD on 01/29/18 at 2119 . Progress - Progress Note Progress Note: Patient is signed out from Dr. Mccloud pending CT A/P and disposition. CT A/P reveals, as per radiolgist: DIVERTICULITIS. THERE IS A SMALL AMOUNT OF CONTAINED LOCAL EXTRALUMINAL GAS SUGGESTIVE OF MICROPERFORATION, WITHOUT FREE INTRAPERITONEAL GAS. THERE IS NO LOCULATED FLUID COLLECTION TO SUGGEST ABSCESS. PRELIMINARY FINDINGS WERE DISCUSSED WITH DR. CALLEJAS IN THE EMERGENCY DEPARTMENT AT APPROXIMATELY 8:14 PM ON JANUARY 29, 2018. Dr. Mead has reviewed this report. Course/Dx - Diagnoses Provider Diagnoses: Lower abdominal pain - Provider Notifications Discussed Care Of Patient With: Rylie Arnold - hospitalist Time Discussed With Above Provider: 21:21 Instructed by Provider To: Admit As Inpatient Discharge - Sign-Out/Discharge Documenting (check all that apply): Discharge/Admit/Transfer - Discharge Plan Condition: Stable Disposition: ADMITTED TO [facility] - Billing Disposition and Condition Condition: STABLE Disposition: [facility] The documentation as recorded by the Jean Claude joy Julia accurately reflects the service I personally performed and the decisions made by [place] hernandez Richard, MD.
--- NOTE | 2018-02-02 15:47 | DS ---
CC: Dr. Ordonez; Dr. Davenport * DISCHARGE SUMMARY: DATE OF ADMISSION: 01/29/18 DATE OF DISCHARGE: 02/01/18 PATIENT OF: Rylie Arnold MD ATTENDING HOSPITALIST: Gilberto Malave MD * (DICTATED BY ANIL VALLADARES) ADMISSION DIAGNOSES: 1. Abdominal pain. 2. Acute sigmoid diverticulitis with microperforation. 3. History of gastroesophageal reflux disease. DISCHARGE DIAGNOSES: 1. Abdominal pain. 2. Acute sigmoid diverticulitis with microperforation. 3. History of gastroesophageal reflux disease. ADMITTING PHYSICIAN: Rylie Arnold MD CONSULTATION: Vince Davenport MD PRIMARY CARE PHYSICIAN: Jered Ordonez MD CHIEF COMPLAINT: Abdominal pain. HISTORY OF PRESENT ILLNESS: Mr. Oquendo is a pleasant 47-year-old gentleman who presented to the emergency room on 01/29/18 with complaints of worsening lower abdominal pain for the past couple of days. The patient has a history of diverticulitis that was treated as an outpatient in three separate occasions. It did improve in every single time he had an outpatient treatment. He notes that for the past couple of days prior to presentation, there was increasing lower abdominal pain with associated nausea, but denies any vomiting or changes in the bowel habits. He had some chills as well at home, but there was no fever. He had also some burning and discomfort sensation while urinating due to pain. Given his known history of diverticulitis and his current presentation , the patient had laboratory workup that revealed slightly elevated white count of 11,700 with stable hemoglobin and hematocrit. He went on and had a CT scan of the abdomen and pelvis that revealed evidence of diverticulitis with small amount of contained extraluminal gas suggestive of microperforation, but without any free intraperitoneal air. The patient also had elevated CRP of 142. Given his presentation and findings of the CT scan, he was admitted to the hospital services for antibiotic therapy. HOSPITAL COURSE: The patient was admitted to the hospitalist service on to the Surgical Short Stay Unit. He was kept n.p.o. and started empiric coverage with antibiotic. He was taking Zosyn every 8 hours. He received IV fluid hydration and his pain was managed with narcotics as well as Zofran as needed for nausea. On the following morning, the patient continued to improve with no further complaints of recurrent abdominal pain. He was ambulatory, out of bed and in stable condition. Surgical consultation was obtained by Dr. Davenport who felt that the patient will benefit from medical management hopefully to resolve his current episode of diverticulitis, then he can follow up with surgery to discuss elective sigmoid colectomy on a recent date. The patient was started on sips of clear liquid diet that he tolerated well and eventually advanced clear liquid diet on evening of that day. His laboratory workup was repeated on the following morning with resolution of his leukocytosis. His chemistry panel revealed no evidence of any electrolyte imbalance. His urinalysis showed no evidence of UTI. The patient continued to improve on daily basis and on a discharge day, he had relatively unremarkable exam. His abdomen was soft and nondistended with minimal tenderness to the suprapubic and left lower quadrant area. There was no guarding, rigidity, or rebound tenderness. His lungs were clear to auscultation. His heart was regular rate and rhythm. His vitals were reviewed and there was no fever reported in the past 48 hours from admission. The patient was stable to be discharged home and was kept on p.o. antibiotics for the next 10 days and he will follow up with Dr. Davenport as recommended in 1 to 2 weeks to discuss elective surgery on a future date. DISCHARGE MEDICATIONS: Include: 1. Augmentin 875 mg p.o. b.i.d. for 10 days. 2. Nexium 40 mg p.o. daily. 3. Percocet 5/325 two tablets q.6 hours as needed for pain. PROBLEM LIST: 1. Recurrent diverticulitis with microperforation. The patient had benefit from admission with inpatient IV antibiotics and will be discharged home in a stable condition to continue his antibiotic course until followup time of surgery. 2. GERD. He will continue his Nexium. ANIL VALLADARES [id number]/[facility] #: [id number] MTDD
== END 2018-02-01 12:35 | disposition home or self-care (01) | DRG 244 ==
LOC: ED 15:00 → SSU 22:01
PROVIDERS: ADMIT Pediatrics; ATTEND Internal Medicine
DX: K57.20 Diverticulitis of large intestine with perforation and abscess without bleeding (principal); K21.9 Gastro-esophageal reflux disease without esophagitis; R10.84 Generalized abdominal pain; Z79.82 Long term (current) use of aspirin; Z79.899 Other long term (current) drug therapy
CPT/HCPCS: 36415; 74176; 80053; 81003; 81015; 82150; 83690; 83735; 85025; 86140; 87086; 93005; 99283; A9270-GY; J1644; J2543

== ENCOUNTER 2018-06-07 07:30 | Inpatient (IN) | payer BC ==
--- NOTE | 2018-05-29 21:02 | HP ---
CC: Dr. Jered Ordonez; Dr. Alejandro Agrawal * ADMISSION HISTORY AND PHYSICAL: DATE OF ADMISSION: 06/07/18. ATTENDING SURGEON: Dr. Vince Davenport * (ANIL Bush, dictating). CHIEF COMPLAINT: Recurrent diverticulitis. HISTORY OF PRESENT ILLNESS: This is a 48-year-old generally healthy male, who has experienced three episodes of acute diverticulitis beginning in 2014. His most recent episode was complicated with evidence of microperforation requiring a hospitalization of approximately 4 days in January of this year. After completing a prolonged course of antibiotics, he has been relatively symptom free in the past couple of months. He did undergo colonoscopy on 05/02/[address] Agrawal. Findings at that time included only eccm-gu-qvgxgxbr diverticulosis without evidence of diverticulitis with recommendation for repeat colonoscopy in 10 years. An EGD was also performed at that time because of the patient's GERD history and that was a normal study. The patient has met with Dr. Davenport and discussed the indications for surgery, risks, benefits and alternatives. He would like to proceed as scheduled with laparoscopic sigmoid colectomy. He will complete standard mechanical bowel prep with oral antibiotics per protocol. PAST MEDICAL HISTORY: Diverticulitis (see above). No other chronic or active past medical history other than noted above and in his review of systems. PAST SURGICAL HISTORY: Previous surgeries includes appendectomy for acute ruptured appendicitis as a teen, bilateral inguinal herniorrhaphies. No surgical complications reported. CURRENT MEDICATIONS: 1. Nexium 40 mg once daily. 2. Multivitamin once daily. DRUG ALLERGIES: None known. FAMILY HISTORY: Negative for anesthesia problems, or bleeding disorders. He does have a brother, who experienced DVT and PE, unprovoked. The patient is unaware of any genetic testing for thrombophilia. SOCIAL HISTORY: The patient is . He has one child. 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 He denies use of tobacco. He drinks less than one drink per day. He denies any other recreational drug use. REVIEW OF SYSTEMS: General: No recent constitutional symptoms or acute illnesses. His weight has been stable. HEENT: No problems reported. Cardiovascular: No chest pain or palpitations. No history of hypertension or heart murmur. Respiratory: No history of asthma, chronic cough, or shortness of breath. GI: GERD symptoms well controlled. See otherwise per HPI. : No problems reported. He specifically denies dysuria, increased frequency, or hematuria. Endocrine: No diabetes or thyroid dysfunction. Musculoskeletal: He was treated for what sounds like a partial Achilles rupture of the left lower extremity. No other acute problems reported. PHYSICAL EXAMINATION GENERAL: Well-nourished, well-developed male, in no acute distress. VITAL SIGNS: Height 73 inches and weight 190 pounds. Temperature 98.1, blood pressure 130/82, pulse 60, respirations 16. HEENT: Pupils are equal and round, reactive. EOMs intact. No conjunctival pallor. Oropharynx: Teeth in good repair. No intraoral lesions. NECK: No lymphadenopathy. No thyromegaly or masses. LUNGS: Clear to auscultation. No wheezes. HEART: Regular rate and rhythm. No murmur noted. ABDOMEN: Well-healed right lower quadrant incision as well as bilateral inguinal herniorrhaphy incisions. Abdomen is soft, nontender to palpation, and without palpable masses or organomegaly. BACK: No spinous process or CVA tenderness. GENITALIA: Not examined. RECTAL: Not done. EXTREMITIES: No edema. NEUROLOGICAL: Grossly intact. SKIN: Warm and dry. No suspicious rashes or lesions noted. IMPRESSION: Recurrent diverticulitis. PLAN: Laparoscopic sigmoid colectomy. ANIL BUSH [id number]/[facility] #: [id number] MTDD
[~2018-06-07 07:30] MED LIST changes: +Buffered Lidocaine 0.9% SYRIN* 5 ML/SYR SYRINGE INTRADERM ONE; +ERTApenem(*) 1 GM in NS 0.9% 50 ML* 50 ML IVPB SCH; +Famotidine IV* 10 MG/ML 2 ML (20 mg) IV ONE; -Morphine INJ* 4 MG/ML 1 ML CARPUJECT IV ONE; -NS 0.9% 1000 ML* 1,000 ML IV ONE; -Ondansetron INJ* 2 MG/ML VIAL IV ONE; -Piperacillin/Tazobac ADVAN(*) 3.375 GM in NS 0.9% 100 ML* 100 ML IVPB ONE
--- OUTSIDE RECORDS SUMMARY | 2018-06-07 09:00 | XMS REPORT ---
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 Allergies, Adverse Reactions, Alerts Date Description Reaction Status Severity Comments 09/13/2017 NKDA active Medications Medication Date Status Form Strength Qnty SIG Indications Ordering Provider Nexium /[address] 40mg 1 by Unknown 000 mouth every day Multivitamin 00/0 Active Tablets 1 by Unknown Adults 000 mouth every day Percocet /0 Hx Tablets 5-325mg 1-2 tabs Unknown 000 by mouth every 4-6 hours as needed pain Augmentin 00/0 Hx Tablets 875-125mg 1 tablet Unknown 000 by mouth q12 hours for 10 days Aspirin /00/[address] 81mg 1 by Unknown 000 mouth every day Vital Signs Date Vital Result Comment 05/29/2018 Height 73 inches 6'1" Weight 190.00 lb Heart Rate 60 /min BP Systolic Sitting 130 mmHg BP Diastolic Sitting 82 mmHg Respiratory Rate 16 /min Body Temperature 98.1 F BMI (Body Mass Index) 25.1 kg/m2 05/18/2018 Weight 190.00 lb Heart Rate 60 /min BP Systolic Sitting 124 mmHg BP Diastolic Sitting 76 mmHg Respiratory Rate 16 /min Body Temperature 98.5 F 02/09/2018 Heart Rate 66 /min BP Systolic Sitting 132 mmHg BP Diastolic Sitting 80 mmHg Respiratory Rate 18 /min Body Temperature 99.3 F 09/15/2017 Height 73 inches 6'1" Weight 188.00 lb Heart Rate 52 /min BP Systolic Sitting 112 mmHg BP Diastolic Sitting 78 mmHg Respiratory Rate 16 /min Body Temperature 98.6 F BMI (Body Mass Index) 24.8 kg/m2 Results Test Date Test Result H/L Range Note Laboratory test finding 05/02/2018 [facility] SEE RESULT BELOW 1, 2 1 [id number] 2 SEE RESULT BELOW Name: OPAL OQUENDO : [address]: Alejandro Agrawal MD Acct: [id number] Unit: [id number] AGE: 48 Location: [facility] Re05/02/18 SEX: M Status: DEP REF SPEC: [id number] MARCELLO: 05/02/18-[address] [facility] [address]: Alejandro Agrawal MD REQ: [id number] RECD: 05/02/18 STATUS: KIRAN JEFFERSON DR: Vince Ordonez MD _ SOURCE: GAS ANTRUM SPDESC: ORDERED: [facility]est COMMENTS: [id number] Procedure Result Reported Site Clotest Final 05/03/18- 1112 ML Clotest Negative * ML - Main Lab . END OF REPORT DEPARTMENT OF PATHOLOGY, [address] [place] [address] Ben Brown M.D. Director [facility] # [id number] Procedures Description No Information Encounters Type Date Location Provider CPT E/M Dx Office Visit 02/09/2018 [facility] [place] [address] K57.20 2:30p [facility] Office Visit 02/01/2018 [facility] [place], [address] K57.92 10:53a [facility] [place] K21.9 Office Visit 01/31/2018 10:53a [facility] [place], [address] K57.92 , Hospitalists ANIL K21.9 Office Visit 01/30/2018 10:48a [facility] [place] [address] K57.92 Assoc, Hospitalists ANIL K21.9 Office Visit 01/30/2018 7:00a [facility] [place] [address] K57.20 [facility] Office Visit 09/15/2017 10:00a [facility] [place], [address] K57.32 [facility] FACS Plan of Care Future Appointment(s):06/07/2018 10:00 am - oM Lucas PA at [facility]06/07/2018 10:00 am - Vince Davenport MD at [facility]05/29/2018 - Mo Lucas, PAK57.20 Dvtrcli of lg int w perforation and abscess w/o [id number] Encounter for other preprocedural examination
--- OUTSIDE RECORDS SUMMARY | 2018-06-07 09:00 | XMS REPORT | Continuity of Care Document ---
:1970 External Reference #:[id number] Author Name Glynn Landry, OD Address [address] [place] [address] Care Team Providers Name Role Phone Mark Horne MD Care Team Information Minister Unavailable Mark Horne MD Primary Care Physician Unavailable Payers Type Date Identification Numbers Payment Provider Subscriber Effective: 2013 Policy Number: [id number] MABEL/BRANDEN [employer] o Isi Oquendo PayID: [id number] [address] [address] [place] [address] Advance Directives Description No Information Available Problems Date Description Provider Status Onset: 05/07/2016 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 Active Onset: 12/22/2013 Myopia Glynn Rodriguez O.D. Active Onset: 12/22/2013 Refractory migraine Glynn Rodriguez O.D. Active Onset: 12/22/2013 Tear film insufficiency Glynn Rodriguez O.D. Active Onset: 12/22/2013 Vitreous degeneration Glynn Rodriguez O.D. Active Family History Date Family Member(s) Problem(s) Comments General Thyroid Disease sister General Cancer grandparent Father due to unknown () Father Heart Disease Mother High BP Mother Cancer Social History Type Date Description Comments Sex Unknown ETOH Use Occasionally consumes alcohol Tobacco Use Start: Unknown Patient has never smoked Smoking Status Reviewed: 06/01/18 Patient has never smoked Allergies, Adverse Reactions, Alerts Date Description Reaction Status Severity Comments 12/22/2013 NKDA Active 12/22/2013 Seasonal Active Medications Medication Date Status Form Strength Qnty SIG Indications Ordering Provider Refresh Optive 12/23/19 Active Solution 0.5-0.9% 2ml 1 drops 375.15 Glynn 14 both Michael, eyes O.D. twice a day Nexium Active Capsules DR 40mg Unknown 00 Immunizations Description No Information Available Vital Signs Date Vital Result Comment 05/31/2017 3:10pm Intraocular Pressure Right Eye 15 mmHg Intraocular Pressure Left Eye 15 mmHg 05/07/2016 3:02pm Intraocular Pressure Right Eye 14 mmHg Intraocular Pressure Left Eye 14 mmHg 01/18/2015 10:34am Intraocular Pressure Right Eye 14 mmHg Intraocular Pressure Left Eye 14 mmHg 12/22/2013 8:55am Intraocular Pressure Right Eye 14 mmHg Intraocular Pressure Left Eye 14 mmHg Results Description No Information Available Procedures Date Code Description Status 05/31/2017 93744 Eye Exam Est Intermediate Completed 05/31/2017 301 Contact Lens Fit $25 Completed 05/07/2016 28492 Eye Exam Est Intermediate Completed 05/07/2016 301 Contact Lens Fit $25 Completed 01/18/2015 08197 Ophthalmoscopy Subsequent Completed 01/18/2015 73554 Refraction Completed 01/18/2015 76300 Eye Exam Est Comprehensive Completed 12/22/2013 33381 Refraction Completed 12/22/2013 21000 Eye Exam Est Comprehensive Completed 12/22/2013 301 Contact Lens Fit $25 Completed 03/29/2011 303 Contact Lens Fit $125 Completed 2011 72905 Eye Exam Est Comprehensive Completed 2011 67074 Refraction Completed 01/31/2010 06334 Ophthalmoscopy Initial Completed 01/31/2010 88703 Eye Exam Est Comprehensive Completed 02/22/2009 303 Contact Lens Fit $125 Completed 01/23/2009 59433 Eye Exam Est Comprehensive Completed 07/11/2007 23570 Ophthalmoscopy Initial Completed 07/11/2007 15562 Eye Exam New Comprehensive Completed 07/11/2007 304 Contact Lens Fit $150 Completed 07/07/2006 21286 Ophthalmoscopy Initial Completed 07/07/2006 29395 Refraction Completed 07/07/2006 01147 Eye Exam New Comprehensive Completed 07/07/2006 304 Contact Lens Fit $150 Completed Encounters Description No Information Available Plan of Treatment 06/01/2018 - Glynn Landry, ODH52.4 [id number] Other vitreous opacities, bilateralFollow up:yearly full multifocal CL f/u PRN, $75
--- OUTSIDE RECORDS SUMMARY | 2018-06-07 09:00 | XMS REPORT ---
:1970 External Reference #:[id number] Author Organization [facility] Address [address] 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 Allergies, Adverse Reactions, Alerts Date Description Reaction Status Severity Comments 09/13/2017 NKDA active Medications Medication Date Status Form Strength Qnty SIG Indications Ordering Provider Nexium /[address] 40mg 1 by Unknown 000 mouth every day Multivitamin /0 Active Tablets 1 by Unknown Adults 000 mouth every day Percocet /0 Hx Tablets 5-325mg 1-2 tabs Unknown 000 by mouth every 4-6 hours as needed pain Augmentin 00/0 Hx Tablets 875-125mg 1 tablet Unknown 000 by mouth q12 hours for 10 days Aspirin /00/[address] 81mg 1 by Unknown 000 mouth every day Vital Signs Date Vital Result Comment 05/18/2018 Weight 190.00 lb Heart Rate 60 [...] Clotest SEE RESULT BELOW 1, 2 1 [id number] 2 SEE RESULT BELOW Name: OPAL OQUENDO : [address]: Alejandro Agrawal MD Acct: [id number] Unit: [id number] AGE: 48 Location: [facility] Re05/02/18 SEX: M Status: DEP REF SPEC: [id number] MARCELLO: 05/02/18-[address]: Alejandro Agrawal MD REQ: [id number] RECD: 05/02/18 STATUS: KIRAN JEFFERSON DR: Vince Ordonez MD _ SOURCE: GAS ANTRUM SPDESC: ORDERED: Clotest COMMENTS: [id number] Procedure Result Reported Site Clotest Final 05/03/18- 1112 ML Clotest Negative * ML - Main Lab . END OF REPORT DEPARTMENT OF PATHOLOGY, [address] [place] [address] Ben Brown M.D. Director [facility] # [id number] Procedures Description No Information Encounters Type Date Location Provider CPT E/M Dx Office Visit 02/09/2018 [facility] [place] [address] K57.20 2:30p Special Service Officer Office Visit 02/01/2018 [facility] [place], [address] K57.92 10:53a [facility] [place] K21.9 Office Visit 01/31/2018 10:53a [facility] [place], [address] K57.92 Assoc, [facility] [place] K21.9 Office Visit 01/30/2018 10:[facility]a [facility] [address] K57.92 [facility]oc, [facility] [place] K21.9 Office Visit 01/30/2018 7:00a [facility] [place] [address] K57.20 Special Service Officer Office Visit 09/15/2017 10:00a [facility] [place], [address] K57.32 [facility] Plan of Care Future Appointment(s):05/29/2018 10:00 am - ANIL Chatman at [facility]06/07/2018 10:00 am - ANIL Chatman at [facility]06/07/2018 10:00 am - Vince Davenport MD at [facility]05/18/2018 - Vince Davenport MDK57.20 Dvtrcli of lg int w perforation and abscess w/o bleeding
[2018-06-07] MEDS ORDERED: Famotidine IV* 10 MG/ML 2 ML (20 mg) ONE (09:03)
[2018-06-07] MEDS ORDERED: Heparin VIAL(*) 5000 UNITS/ML VIAL (FIVE THOUSAND) ONE (09:03)
[2018-06-07] MEDS ORDERED: Ketorolac INJ* 30 MG/ML 1 ML VIAL ONE (09:42)
[2018-06-07] MEDS ORDERED: fentaNYL* 50 MCG/ML 2 ML VIAL (100 MCG VIAL) ONE ×3 (09:42→14:00)
[2018-06-07] MEDS ORDERED: Lidocaine 2% PF * 5 ML VIAL ONE (09:42)
[2018-06-07] MEDS ORDERED: Ondansetron INJ* 2 MG/ML VIAL ONE (09:42)
[2018-06-07] MEDS ORDERED: Propofol* 10 MG/ML 20 ML BTL IV PUSH ONE (09:42)
[2018-06-07] MEDS ORDERED: Dexamethasone IV* 4 MG/ML 1 ML (4 MG) ONE (09:42)
[2018-06-07] MEDS ORDERED: Rocuronium* 10 MG/ML VIAL ONE ×2 (09:42→13:59)
[2018-06-07] MEDS ORDERED: Midazolam* 1 MG/ML 5 ML VIAL (5 MG) ONE (09:43)
[2018-06-07] MEDS ORDERED: KETAMINE HCL* 50 MG/ML 10 ML VIAL ONE (09:43)
[2018-06-07] MEDS ORDERED: Neostigmine Methylsulfate* 1 MG/ML 10 ML VIAL (1 mg/ml) ONE (10:00)
[2018-06-07] MEDS ORDERED: Glycopyrrolate IV* 0.2 MG/ML 1 ML VIAL ONE (10:00)
[2018-06-07] MEDS ORDERED: EPHEDrine (Pressors)* 50 MG/ML VIAL ONE ×2 (11:24→11:57)
[2018-06-07] MEDS ORDERED: Bupivacaine 0.25% EPI 200,000* 30 ML SDV ONE (11:49)
[2018-06-07] MEDS ORDERED: fentaNYL* 50 MCG/ML 2 ML VIAL (100 MCG VIAL) IV PRN (14:41)
[2018-06-07] MEDS ORDERED: Ondansetron INJ* 2 MG/ML VIAL IV PRN (14:41)
[2018-06-07] MEDS ORDERED: Naloxone* 0.4 MG/ML 1 ML VIAL IV PRN (14:41)
[2018-06-07] MEDS ORDERED: HYDROmorphone INJ1* 1 MG/ML SYRINGE IV PRN (14:41)
[2018-06-07] MEDS ORDERED: HYDROmorphone INJ1* 1 MG/ML SYRINGE ONE ×2 (15:26→15:32)
--- NOTE | 2018-06-07 15:34 | OP ---
Operative Report - Blank - Operative Report Date of Operation: 06/07/18 Note: Brief Operative Note Preop Dx: Recurrent diverticulitis Postop Dx: same Procedure: Laparoscopic sigmoid colectomy Anesthesia: GET Surgeon: Ethel Proposal Editor: ANIL Lucas Fluids: 2700 ml RL EBL: < 100 ml Specimen: sigmoid colon Drains: none Findings: dictated
[2018-06-07] MEDS ORDERED: Acetaminophen TAB* 325 MG PO PRN (15:41)
[2018-06-07] MEDS ORDERED: Naloxone* 0.4 MG/ML 1 ML VIAL IV PUSH PRN (15:41)
[2018-06-07] MEDS ORDERED: Morphine PCA ADULT* 5 MG/ML 30 ML PCA SCH (16:00)
[2018-06-07] MEDS: Famotidine IV* 10 MG/ML 2 ML (20 mg) IV SLOW PU SCH (21:03)
[2018-06-07] MEDS: Heparin VIAL(*) 5000 UNITS/ML VIAL (FIVE THOUSAND) SUBCUT SCH (21:03)
[2018-06-08] MEDS: Heparin VIAL(*) 5000 UNITS/ML VIAL (FIVE THOUSAND) SUBCUT SCH ×3 (06:11→22:23)
[2018-06-08] MEDS: Famotidine IV* 10 MG/ML 2 ML (20 mg) IV SLOW PU SCH ×2 (07:50→20:55)
--- NOTE | 2018-06-08 14:51 | PN ---
Progress Note - Progress Note Date of Service: 06/08/18 SOAP: Subjective: Pt seen and examined earlier today. OOB some burping no nausea Numbness to 3 and 4 digit at right hand Objective: Temp Pulse Resp BP Pulse Ox 99.3 F 62 18 116/61 98 06/08/18 07:31 06/08/18 11:19 06/08/18 13:00 06/08/18 11:19 06/08/18 13:00 Intake & Output 06/07/18 06/08/18 06/08/18 22:59 06:59 14:59 Intake Total 3040 1976 100 Output Total 575 1075 1275 Balance 2465 901 -1175 a and o x3 lungs clear abdo: soft/ ND/ tender at incisions hypoactive BS no calf tenderness Assessment: POD1 lap sigmoid colectomy; HD stable Plan: continue clears for now d/c bagley change IVF pain control OOB, IS GI DVT proph
[2018-06-08] MEDS: D5W 1/2 NS KCl 20 Meq 1000 ML* 1,000 ML IV SCH (15:02)
[2018-06-08] MEDS: Ketorolac INJ* 30 MG/ML 1 ML VIAL IV PUSH PRN (17:19)
--- NOTE | 2018-06-08 17:50 | OP ---
CC: Dr. Jered Ordonez; Dr. Alejandro Agrawal; [facility] * DATE OF OPERATION: 06/07/18 - ROOM #351 DATE OF : [birth year] SURGEON: Vince Davenport MD BEAN SPROUT LABORER: ANIL Bush ANESTHESIOLOGIST: Dr. Wallace. ANESTHESIA: General. PRE-OP DIAGNOSIS: Recurrent diverticulitis. POST-OP DIAGNOSIS: Recurrent diverticulitis. OPERATIVE PROCEDURE: Laparoscopic-assisted sigmoid colectomy. ESTIMATED BLOOD LOSS: Less 100 cc. IV FLUIDS: 2700 cc of crystalloid fluid given. SPECIMEN: Sigmoid colon. DRAINS: None. COUNTS: Lap pad count and instrument count correct at the end of the procedure. CONDITION: The patient was transferred to the PACU stable and extubated. DESCRIPTION OF PROCEDURE: The patient was identified in the preoperative area. He was marked. Consent was signed. Case discussed with him and his family members again. He was then taken to the operating room, placed on the operating table in supine position. Preoperative antibiotics were given. Sequential devices were placed on bilateral lower extremities. General anesthesia was induced. A Vila catheter inserted. The patient's abdomen was clipped of hair and he was positioned on the table in a split leg positioning. The abdomen was prepped and draped in the standard surgical fashion and prior to this, the rectal area was prepped with the Betadine flush with the insertion of a large Vila catheter into the anus and injecting Betadine irrigation. There was thin stool encountered but nothing large. Next, the patient's abdomen was prepped and draped in the standard surgical fashion. A time-out was performed. Folds of the umbilicus were elevated anteriorly. A Veress needle was attempted to be placed into the abdominal cavity that had proved difficult and this was abandoned for a small upper umbilical incision. This was then made and deepened down to the anterior fascia, which was incised. Rectus pillars were retracted laterally and the posterior fascia incised and entry into the abdominal cavity was made under direct vision. A 12-mm blunt trocar was then inserted. Abdomen was allowed to inflate to a pressure of 15 mmHg. The patient tolerated the insufflation well. Laparoscope was inserted through this and review of the abdomen showed some adhesions of the omentum to the anterior abdominal wall. Additional trocars were then placed in the following positions : A 12 mm in the right lower quadrant, a 5 mm in the suprapubic area, and a 5 mm at the left lower quadrant. Table was placed in a Trendelenburg. Review of the colon showed diverticula throughout the sigmoid, but no significant adhesions. There were some small bowel and omental attachments to the right lower quadrant from previous appendectomy. These were taken down with sharp dissection. This allowed the small bowel to be brought up out of the pelvis with ease. Next, attention was turned towards the descending colon, which was elevated anteriorly. We identified aorta and started cauterizing the peritoneum over the descending colon mesentery. We followed this up along the EDA and IMV. We entered through the mesentery itself and this way isolated this vasculature to the descending colon. Next, the patient was placed in a head-up positioning. The transverse colon grasped and retracted inferiorly and lesser sac entered through the gastrocolic ligament. We took this dissection up to the splenic flexure. It should also be noted that adhesions to the anterior abdominal wall from the omentum were taken with LigaSure device to allow the omentum to be brought more superiorly. At the extent of our dissection in lesser sac, we did identify to the inferior edge of the pancreas. This was maintained in the retroperitoneum as we did not violate this. Next, we started the dissection at the left iliac fossa freeing the sigmoid colon that had been attached to this site with both blunt and sharp dissections. We carried this up towards the white line of Toldt and then this was incised taking care not to violate the retroperitoneum until we connected to where the previous dissection was at the splenic flexure. The colon was fully mobile and should also be noted that we identified the left ureter and gonadal vessels with ease and these were protected throughout the case. Next, the peritoneum was incised down to the sacral promontory, both on the left and right. We then made a window at the rectosigmoid junction. Took additional vasculature to the sigmoid colon site until we were freely around the colon where we wished to transect. Again, this was at the rectosigmoid junction and a 60-mm purple GI stapling device was fired across this with 1 single firing. We were able to transect the bowel. Hemostasis was excellent. Next, with LigaSure device and retraction on the distal colon specimen, we took the blood supply up towards the initial area of our dissection. Looking at the EDA and IMV, these were taken with a 45-mm moody GI stapling device. Hemostasis was excellent at this site. We then made the decision that we had done enough of the dissection. We chose a point on the descending colon that I felt we should bring down for the anastomosis. This seemed to reach with ease. Next, we opened the abdomen through the previous 12-mm trocar incision just above the umbilicus. We dissected down to the anterior fascia, which was incised, and then into the belly. We protected the wound with an Krystian device and brought our specimen through this area. Approximately 25 cm of colon was brought up through this site and we identified an area from the sigmoid colon and the descending colon where we appeared to be free of diverticular disease. At this first site, we did note there was 1 diverticulum and we maintained this in our specimen. I cleaned up the colon at this area and took additional mesentery until the specimen was free and then placed a pursestring device around good descending colon. The specimen was then transected and passed off. We then sized the colon with the appropriate sizers choosing on a 31 mm. We placed 31-mm EEA stapling device anvil into the colon and sutured this with the pursestring. We cleaned off additional pericolonic fat until we just had the wall of the colon, which was intact and without diverticula. We then dropped the colon back into the abdomen with the anvil in place. Passed off these tools used for this portion of the anastomosis and closed the anterior fascia with interrupted 0 Vicryl sutures in a [id number] fashion leaving a small opening for the 12-mm trocar to be reinserted. This was reinserted and the abdomen was allowed to re-insufflate. Looking back in the abdomen, there had been some blood. This was suctioned off. I did not see any significant active bleeding. The anvil was able to be brought into the pelvis with ease without tension. Next, below the sizers were inserted and an EEA stapling device of 31 mm with 4.8-mm staplers was inserted. This spike was opened up right through the previous staple line at the mid portion of it. It was mated with the anvil and the anastomosis was created. Two complete doughnuts were identified in the EEA stapling device. These were sent with the initial specimen. We then irrigated , obtained hemostasis, and then the anastomosis was tested with proximal clamping of the colon and insertion of air through the Vila catheter per rectum. We insufflated and the colon dilated with ease. There was no evidence of air bubbles. The irrigation was then removed as was the air within the colon and review of the abdomen showed no significant bleeding. It should be noted that there were no evidence of liver lesions. Small bowel was intact and we allowed the abdomen to collapse just after we placed an Endo Close device with an 0 Vicryl stitch at the right lower quadrant to 12-mm port site. Once the abdomen was collapsed, we utilized one last 0 Vicryl stitch at the fascia at the upper midline incision. This incision was then irrigated, reapproximated with skin yung. The additional skin incisions were closed with yung followed by sterile dressing. The patient tolerated the procedure well. [id number]/[id number] #: [id number] DANIELA
[2018-06-09] MEDS: D5W 1/2 NS KCl 20 Meq 1000 ML* 1,000 ML IV SCH ×2 (01:13→11:15)
[2018-06-09] MEDS: Heparin VIAL(*) 5000 UNITS/ML VIAL (FIVE THOUSAND) SUBCUT SCH ×3 (05:34→21:45)
[2018-06-09 05:49] LABS: ABS Basophils 0 10^3/ul (0-0.2); ABS Eosinophils 0 10^3/ul (0-0.6); ABS Lymphocytes 1.3 10^3/ul (1.0-4.8); ABS Monocytes 0.6 10^3/ul (0-0.8); ABS Neutrophils 4.9 10^3/ul (1.5-7.7); ABS Nucleated RBC 0 10^3/ul; Eosinophil % 0.6 % (0-6); Hematocrit 33 % (42-52); Hemoglobin 11.7 g/dl (14.0-18.0); Lymphocyte % 18.7 % (25-47); Mean Corpuscular HGB Conc 35 g/dl (31-36); Mean Corpuscular Hemoglobin 34 pg (27-31); Mean Corpuscular Volume 95 fL (80-94); Mean Platelet Volume 6.9 um3 (7.4-10.4); Nucleated Red Blood Cells % 0; Platelet Count 204 10^3/ul (150-450); Red Blood Count 3.49 10^6/ul (4.00-5.40); Red Cell Distribution Width 13 % (10.5-15); White Blood Count 6.8 10^3/ul (3.5-10.8)
[2018-06-09] MEDS: Famotidine IV* 10 MG/ML 2 ML (20 mg) IV SLOW PU SCH (10:37)
--- NOTE | 2018-06-09 10:48 | PN ---
Progress Note - Progress Note Date of Service: 06/09/18 SOAP: Subjective: Pt seen and examined. Feels well. Positive flatus, less nausea. No BM, Objective: Temp Pulse Resp BP Pulse Ox 99.1 F 56 14 126/74 100 06/09/18 07:13 06/09/18 07:13 06/09/18 07:13 06/09/18 07:13 06/09/18 07:13 Intake & Output 06/08/18 06/09/18 06/09/18 22:59 06:59 14:59 Intake Total 1855 1007 Output Total 9594 670 2798 Balance 455 582 -1125 a and o x3, nad lungs clear abdo: dressing removed, no redness soft/ ND/ incisional tenderness ext wnl Laboratory Last Values WBC 6.8 10^3/ul (3.5-10.8) 06/09/18 05:22 RBC 3.49 10^6/ul (4.00-5.40) L 06/09/18 05:22 Hgb 11.7 g/dl (14.0-18.0) L 06/09/18 05:22 Hct 33 % (42-52) L 06/09/18 05:22 MCV 95 fL (80-94) H 06/09/18 05:22 MCH 34 pg (27-31) H 06/09/18 05:22 MCHC 35 g/dl (31-36) 06/09/18 05:22 RDW 13 % (10.5-15) 06/09/18 05:22 Plt Count 204 10^3/ul (150-450) 06/09/18 05:22 MPV 6.9 um3 (7.4-10.4) L 06/09/18 05:22 Neut % (Auto) 72.1 % (38-83) 06/09/18 05:22 Lymph % (Auto) 18.7 % (25-47) L 06/09/18 05:22 Chambers % (Auto) 8.2 % (0-7) H 06/09/18 05:22 Eos % (Auto) 0.6 % (0-6) 06/09/18 05:22 Baso % (Auto) 0.4 % (0-2) 06/09/18 05:22 Absolute Neuts (auto) 4.9 10^3/ul (1.5-7.7) 06/09/18 05:22 Absolute Lymphs (auto) 1.3 10^3/ul (1.0-4.8) 06/09/18 05:22 Absolute Monos (auto) 0.6 10^3/ul (0-0.8) 06/09/18 05:22 Absolute Eos (auto) 0 10^3/ul (0-0.6) 06/09/18 05:22 Absolute Basos (auto) 0 10^3/ul (0-0.2) 06/09/18 05:22 Absolute Nucleated RBC 0 10^3/ul 06/09/18 05:22 Nucleated RBC % 0 06/09/18 05:22 Sodium 141 mmol/L (135-145) 06/09/18 05:22 Potassium 4.4 mmol/L (3.5-5.0) 06/09/18 05:22 Chloride 110 mmol/L (101-111) 06/09/18 05:22 Carbon Dioxide 30 mmol/L (22-32) 06/09/18 05:22 Anion Gap 1 mmol/L (2-11) L 06/09/18 05:22 BUN 9 mg/dL (6-24) 06/09/18 05:22 Creatinine 0.76 mg/dL (0.67-1.17) 06/09/18 05:22 Est GFR ( Amer) 131.9 (>60) 06/09/18 05:22 Est GFR (Non-Af Amer) 109.0 (>60) 06/09/18 05:22 BUN/Creatinine Ratio 11.8 (8-20) 06/09/18 05:22 Glucose 120 mg/dL (70-100) H 06/09/18 05:22 Calcium 8.6 mg/dL (8.6-10.3) 06/09/18 05:22 Phosphorus 2.5 mg/dL (2.5-5.0) 06/09/18 05:22 Magnesium 1.8 mg/dL (1.9-2.7) L 06/09/18 05:22 Assessment: POD2 sigmoid colectomy Plan: advance diet repletion lytes d/c railway signal technician SACMA to cover me until 06/12
[2018-06-09] MEDS ORDERED: Morphine VIAL* 4 MG/ML VIAL (1 ml vial) IV PRN (10:50)
[2018-06-09] MEDS ORDERED: oxyCODONE/Acetamin 5/325 MG* TAB PO PRN (10:50)
[2018-06-09] MEDS ORDERED: Magnesium Sulfate 1 GM IV* 1 GM/100 ML BAG IV ONE (10:51)
[2018-06-09] MEDS: Ketorolac INJ* 30 MG/ML 1 ML VIAL IV PUSH PRN ×2 (11:33→21:49)
[2018-06-10] MEDS: D5W 1/2 NS KCl 20 Meq 1000 ML* 1,000 ML IV SCH (01:54)
[2018-06-10] MEDS: Heparin VIAL(*) 5000 UNITS/ML VIAL (FIVE THOUSAND) SUBCUT SCH (06:20)
[2018-06-10] MEDS: Ketorolac INJ* 30 MG/ML 1 ML VIAL IV PUSH PRN (06:22)
[2018-06-10] MEDS ORDERED: Omeprazole CAP* 20 MG PO SCH (07:30)
[2018-06-10 08:29] VITALS: BP 118/69
--- NOTE | 2018-06-10 08:56 | PN ---
Progress Note - Progress Note Date of Service: 06/10/18 SOAP: Subjective: []Had large BM. Feels well. Would like to eat. Objective: [] Vital Signs Temp 99.0 F 06/10/18 08:09 Pulse 50 06/10/18 08:09 Resp 18 06/10/18 08:09 BP 118/69 06/10/18 08:09 Pulse Ox 100 06/10/18 08:09 Gen: NAD Abd: incis c/d/i; no erythema; soft; ND; min tender Intake & Output 06/09/18 06/10/18 06/10/18 18:59 06:59 18:59 Intake Total 1472 1397 Output Total 2125 975 Balance -653 422 Intake: IV Fluids 992 979 D5W 1/2 NS 20 meq KCL 992 979 IVPB 103 D5W 1/2 NS 20 meq KCL 103 Oral 480 315 Output: Urine 2125 975 Other: Estimated Void Medium Date of Last Bowel 06/10/18 Movement # Bowel Movements 2 1 Estimated Stool Amount Small Large # Voids 1 Assessment: []POD#3 s/p lap sigmoid Plan: []adv diet shower home later today
== END 2018-06-10 10:55 | disposition home or self-care (01) | DRG 221 ==
LOC: AA 08:55 → SSU 17:19
PROVIDERS: ADMIT Surgery; ATTEND Surgery
PROC: 0DTN0ZZ Resection of Sigmoid Colon, Open Approach (ICD-10-PCS; principal; 2018-06-07 10:15)
DX: K57.32 Diverticulitis of large intestine without perforation or abscess without bleeding (principal); K21.9 Gastro-esophageal reflux disease without esophagitis; Z83.2 Family history of diseases of the blood and blood-forming organs and certain disorders involving the immune mechanism; Z72.89 Other problems related to lifestyle; R11.0 Nausea; G89.29 Other chronic pain; M54.9 Dorsalgia, unspecified; M54.2 Cervicalgia
CPT/HCPCS: 36415; 80048; 83735; 84100; 85025; 88307; A9270-GY; C1776; J1100; J1170; J1335; J1644; J1885; J2250; J2270; J2405; J2704; J2710; J3010; J3475